=== PATIENT | male | born 1965 ===

== ENCOUNTER 2017-05-09 10:21 | Inpatient (IN) | payer OTHER ==
[2017-05-09 10:23] VITALS: BMI 29.0
[2017-05-09] MEDS ORDERED: Iohexol 240 (50 ml) PO ONE (11:19)
--- NOTE | 2017-05-09 11:21 | ED PDOC ---
HPI: Abdomen Time Seen by Provider: 05/09/17 10:40 Chief Complaint (Nursing): Abdominal Pain Chief Complaint (Provider): Abdominal Pain History Per: Patient History/Exam Limitations: no limitations Onset/Duration Of Symptoms: Days (x 2-3 weeks), Worse Since (last night) Current Symptoms Are (Timing): Still Present Additional History Per: Family () Additional Complaint(s): Jm is a 51 y/o male with a history of diverticulitis who presents to the ED complaining of abdominal pain and distension. Patient's states his abdomen started becoming distended around 2-3 weeks ago, and last night he developed severe abdominal pain, sweating, dysuria, and constipation. Patient denies fever. PMD: None Past Medical History Reviewed: Historical Data, Nursing Documentation, Vital Signs Vital Signs: Last Vital Signs Temp 98.6 F 05/10/17 16:24 Pulse 98 H 05/10/17 16:24 Resp 18 05/10/17 16:24 BP 162/94 H 05/10/17 16:24 Pulse Ox 96 05/10/17 16:24 - Medical History PMH: Diverticulitis Denies: HTN (PT DENIES), Hypercholesterolemia (PT DENIES), Chronic Kidney Disease - Surgical History Other surgeries: shoulder surgery b/l, elbow surgery - Family History Family History: States: Unknown Family Hx - Social History Current smoker - smoking cessation education provided: Yes (few cigarettes/day) Alcohol: < 2 Drinks/Day Drugs: Denies - Immunization History Hx Tetanus Toxoid Vaccination: No Hx Influenza Vaccination: Yes Hx Pneumococcal Vaccination: No - Home Medications Home Medications: Ambulatory Orders Medication Instructions Recorded No Known Home Med 05/09/17 - Allergies Allergies/Adverse Reactions: Allergies Allergy/AdvReac Type Severity Reaction Status Date / Time hazelnut Allergy SWELLING Verified 05/09/17 10:46 Review of Systems ROS Statement: Except As Marked, All Systems Reviewed And Found Negative Constitutional: Positive for: Chills, Sweats. Negative for: Fever Gastrointestinal: Positive for: Abdominal Pain, Constipation, Other (distension) Genitourinary Male: Positive for: Dysuria Physical Exam - Reviewed Nursing Documentation Reviewed: Yes Vital Signs Reviewed: Yes - Physical Exam Appears: Positive for: No Acute Distress Head Exam: Positive for: ATRAUMATIC, NORMOCEPHALIC Skin: Positive for: Normal Color, Warm, Dry Eye Exam: Positive for: Normal appearance Cardiovascular/Chest: Positive for: Regular Rate, Rhythm. Negative for: Murmur Respiratory: Positive for: Normal Breath Sounds. Negative for: Respiratory Distress Gastrointestinal/Abdominal: Positive for: Tenderness (diffuse), Distended Back: Positive for: Normal Inspection Neurologic/Psych: Positive for: Alert, Oriented. Negative for: Motor/Sensory Deficits - Laboratory Results Result Diagrams: 05/10/17 06:00 05/10/17 06:00 - ECG O2 Sat by Pulse Oximetry: 97 (RA) Pulse Ox Interpretation: Normal Medical Decision Making Medical Decision Making: Time: 11:19 Initial Impression: Abdominal Pain; rule out cirrhosis, constipation Initial Plan: --CT Abdomen & Pelvis with PO and IV contrast --CMP --CBC --Omnipaque --Urinalysis Time: 14:57 CT ABDOMEN & PELVIS IMPRESSION: Findings likely represent sigmoid diverticulitis though other infectious or inflammatory causes are not completely excluded. Limited free loculated gas adjacent to the affected sigmoid segment is favored over large diverticulum. No definite abscess. Trace pelvic ascites. Underlying neoplasm is including the differs diagnosis though not favored with lower endoscopy suggested following therapy. Enlarge fatty liver. Mildly enlarged prostate gland. Time: 15:13 --Based on CT results, diagnosis is acute diverticulitis with microperforation. Calling hospitalist engineer design and construction to discuss plan. --Dr. Figueroa, surgeon engineer design and construction aware of pt. discussed also with hospitalist, accepted patient -iv abx ordered and pt admitted -answered pt and questions at bedside Scribe Attestation: Documented by Samy You, acting as a scribe for Gloria Ashraf MD Provider Scribe Attestation: All medical record entries made by the Scribe were at my direction and personally dictated by me. I have reviewed the chart and agree that the record accurately reflects my personal performance of the history, physical exam, medical decision making, and the department course for this patient. I have also personally directed, reviewed, and agree with the discharge instructions and disposition. Disposition - Clinical Impression Clinical Impression: Abdominal discomfort, Acute diverticulitis - Patient ED Disposition Is Patient to be Admitted: Yes Discussed With : Pamela Figueroa Doctor Will See Patient In The: ED Counseled Patient/Family Regarding: Studies Performed, Diagnosis - Disposition Disposition Time: 13:00 Condition: STABLE
[2017-05-09] MEDS ORDERED: Iohexol 240 (50 ml) ONE (11:37)
[2017-05-09] MEDS ORDERED: Morphine 4 MG/ML VIAL ONE (11:41)
[2017-05-09] MEDS ORDERED: Morphine 4 MG/ML VIAL IV ONE (11:45)
[2017-05-09 12:26] LABS: BASO # 0.1 K/uL (0.0-0.2); BASO % 0.6 % (0.0-2.0); EOS # 0.2 K/uL (0.0-0.7); EOS % 1.2 % (0.0-4.0); HEMOGLOBIN 13.2 g/dL (12.0-18.0); LYMPH # 1.4 K/uL (1.0-4.3); LYMPH % 9.5 % (20.0-40.0); MEAN CELL VOLUME 92.1 fl (80.0-94.0); MEAN CORPUSCULAR HEMOGLOBIN 31.1 pg (27.0-31.0); MEAN CORPUSCULAR HGB CONC 33.8 g/dL (33.0-37.0); MEAN PLATELET VOLUME 7.5 fl (7.2-11.7); MONO # 1.5 K/uL (0.0-0.8); MONO % 10.3 % (0.0-10.0); NEUT # 11.4 K/uL (1.8-7.0); NEUT % 78.4 % (50.0-75.0); PLATELET COUNT 238 K/uL (130-400); RBC 4.23 Mil/uL (4.40-5.90); RED CELL DISTRIBUTION WIDTH 13.4 % (11.5-14.5); WHITE BLOOD COUNT 14.6 K/uL (4.8-10.8)
[2017-05-09 12:34] LABS: ALB/GLOB RATIO 1.3 (1.0-2.1); ALBUMIN 4.2 g/dL (3.5-5.0); ALT/SGPT 27 U/L (21-72); AST/SGOT 26 U/L (17-59); BLOOD UREA NITROGEN 10 mg/dl (9-20); CALCIUM 9.3 mg/dL (8.4-10.2); GFR AFRICAN-AMERICAN > 60; GFR NON-AFRICAN AMERICAN > 60
[2017-05-09 13:17] LABS: SQUAMOUS EPITHIAL < 1 /hpf (0-5); URINE BACTERIA RARE (<OCC); URINE BILIRUBIN NEGATIVE (NEGATIVE); URINE BLOOD NEGATIVE (NEGATIVE); URINE CLARITY CLEAR (Clear); URINE COLOR YELLOW (YELLOW); URINE GLUCOSE (UA) NEG (Normal); URINE LEUKOCYTE ESTERASE NEG Leu/uL (Negative); URINE NITRATE NEGATIVE (NEGATIVE); URINE PROTEIN NEGATIVE (NEGATIVE); URINE UROBILINOGEN 0.2-1.0 mg/dL (0.2-1.0)
[2017-05-09 14:20] LABS: BASOPHIL 1 % (0-2); LYMPHOCYTE 8 % (20-50); MONOCYTE 13 % (0-10); NEUTROPHIL 78 % (42-75); PLATELET ESTIMATE NORMAL (NORMAL); TOTAL CELLS COUNTED 100
[2017-05-09] MEDS ORDERED: Iohexol 300 100 ML IJ ONE (14:25)
[2017-05-09] MEDS ORDERED: Sodium Chloride 0.9% 100 ML ONE (14:25)
--- NOTE | 2017-05-09 14:59 | CT ---
PROCEDURE: CT Abdomen and Pelvis with contrast HISTORY: abdominal pain and distention COMPARISON: None. TECHNIQUE: Contrast dose: Omnipaque 300, 100 cc Radiation dose: Total exam DLP = 892.13 mGy-cm. This CT exam was performed using one or more of the following dose reduction techniques: Automated exposure control, adjustment of the mA and/or kV according to patient size, and/or use of iterative reconstruction technique. FINDINGS: LOWER THORAX: Unremarkable. LIVER: The liver is diffusely diminished in overall density compatible with diffuse fatty infiltration. Further, [id number] hepatomegaly is appreciated. No definite intrahepatic biliary dilatation or mass identified. GALLBLADDER AND BILE DUCTS: Mildly distended but otherwise appears unremarkable. PANCREAS: Unremarkable. No gross lesion or ductal dilatation. SPLEEN: Unremarkable. ADRENALS: Right or gland is normal appearing. The left adrenal gland harbors a AD nodule measuring 2.0 x 2.6 cm. It measures 39 Hounsfield units in this enhanced study. Though this may represent a benign adenoma, this cannot be proven by this examination, with other etiologies including neoplasm not excluded. Follow-up adrenal MRI is advised without contrast. KIDNEYS AND URETERS: Unremarkable. No hydronephrosis. No solid mass. VASCULATURE: Unremarkable. No aortic aneurysm. BOWEL: The stomach is collapsed and is poorly evaluated. However, evaluation the bowel is remarkable for prominent mural thickening of the mid to distal sigmoid colon with associated diverticular changes compatible with diverticulitis. Minimal pelvic ascites is related and there is likely loculated extraluminal gas seen associated with the mid sigmoid segment anteriorly though this could represent a large diverticulum. No definitive abscess at this time. Sympathetic segmental enteritis is seen at and adjacent mid ileal loop. . APPENDIX: Normal appendix, retrocecal. PERITONEUM: As above in bowel section. LYMPH NODES: Unremarkable. No enlarged lymph nodes. BLADDER: Unremarkable. REPRODUCTIVE: Mild prostate gland enlargement noted. BONES: No acute fracture. OTHER FINDINGS: None. IMPRESSION: Findings likely represent sigmoid diverticulitis though other infectious or inflammatory causes are not completely excluded. Limited free loculated gas adjacent to the affected sigmoid segment is favored over large diverticulum. No definite abscess. Trace pelvic ascites. Underlying neoplasm is including the differs diagnosis though not favored with lower endoscopy suggested following therapy. Enlarged fatty liver. Mildly enlarged prostate gland. Findings discussed with Dr. leiva 05/09/2017 2:57 p.m. with written down and read back verification.
[2017-05-09] MEDS ORDERED: Piperacillin/Tazobact 4.5 GM in Sodium Chloride 0.9% 100 ML IVPB STA (15:12)
[2017-05-09] MEDS ORDERED: metroNIDAZOLE 500mg/100ml NS 100 ML IVPB SCH (15:30)
[2017-05-09] MEDS ORDERED: Piperacillin/Tazobact 3.375 gm Inj IVPB ONE (15:43)
[2017-05-09] MEDS ORDERED: metroNIDAZOLE 500mg/100ml NS 100 ML IVPB ONE (15:56)
--- NOTE | 2017-05-09 16:24 | CP.PCM.CON ---
History of Present Illness - History of Present Illness History of Present Illness: General Surgery Dr. Figueroa 51 y/o M y/o PMHx of EtOH dependence, constipation, and diverticulitis presents to the ED c/o abd pain. Family member at bedside to help corroborate pt history. Pain started a few days ago, however, became acutely intense yesterday , causing the pt to double over. Movement and coughing make the pain worse. Nothing makes the pain better. Pain is localized to the suprapubic/LLQ region. Pt reports concurrent dysuria and hesitancy. Pt also admits to new CP, SOB w/ chronic productive cough, and RUQ abd pain. Pt denies F/C, N/V. PHMx: see above Meds: reviewed in chart ALL: hazelnut, fish; NKDA PSHx: B/L shoulder repair, L elbow, cardiac cath SHx: 1 pack x2days. 2-3beers daily. occasional marijuana use FHx: noncontributory Review of Systems - Review of Systems All systems: reviewed and no additional remarkable complaints except (see HPI) Past Patient History - Infectious Disease Hx of Infectious Diseases: None - Past Medical History & Family History Past Medical History?: Yes - Past Social History Alcohol: < 2 Drinks/Day Drugs: Denies - CARDIAC Hx Hypercholesterolemia: No (PT DENIES) Hx Hypertension: No (PT DENIES) - PULMONARY Hx Respiratory Disorders: No - NEUROLOGICAL Hx Neurological Disorder: No - HEENT Hx HEENT Problems: No - RENAL Hx Chronic Kidney Disease: No - ENDOCRINE/METABOLIC Hx Endocrine Disorders: No - HEMATOLOGICAL/ONCOLOGICAL Hx Blood Disorders: No - INTEGUMENTARY Hx Dermatological Problems: No - MUSCULOSKELETAL/RHEUMATOLOGICAL Hx Falls: No - GASTROINTESTINAL Hx Diverticulitis: Yes - GENITOURINARY/GYNECOLOGICAL Hx Genitourinary Disorders: No - PSYCHIATRIC Hx Substance Use: No - SURGICAL HISTORY Hx Surgeries: Yes (cuff rotator sx) Hx Orthopedic Surgery: Yes (shai shoulder, LEFT ELBOW SURGERY) - ANESTHESIA Hx Anesthesia: Yes Hx Anesthesia Reactions: No Hx Malignant Hyperthermia: No Meds Allergies/Adverse Reactions: Allergies Allergy/AdvReac Type Severity Reaction Status Date / Time elenonut Allergy SWELLING Verified 05/09/17 10:46 - Medications Medications: Current Medications Piperacillin Sod/Tazobactam (Sod 4.5 gm/ Sodium Chloride) 100 mls @ 100 mls/hr IVPB STAT STA PRN Reason: Protocol Stop: 05/09/17 16:11 Metronidazole (Flagyl 500mg/100ml Ns) 100 mls @ 100 mls/hr IVPB ONCE BERNY PRN Reason: Protocol Last Admin: 05/09/17 15:57 Dose: 100 mls/hr Physical Exam - Constitutional Appears: Non-toxic, No Acute Distress - Head Exam Head Exam: NORMAL INSPECTION - Eye Exam Eye Exam: Normal appearance - ENT Exam ENT Exam: Mucous Membranes Moist - Respiratory Exam Respiratory Exam: NORMAL BREATHING PATTERN. absent: Accessory Muscle Use, Respiratory Distress - GI/Abdominal Exam GI & Abdominal Exam: Distended (moderate), Soft, Tenderness (TTP suprapubic & RUQ). absent: Rebound, Rigid - Extremities Exam Extremities exam: Positive for: normal inspection - Neurological Exam Neurological exam: Alert, Oriented x3 - Psychiatric Exam Psychiatric exam: Normal Affect, Normal Mood - Skin Skin Exam: Dry, Intact, Normal Color, Warm Results - Vital Signs Recent Vital Signs: Last Vital Signs Temp 98.3 F 05/09/17 10:24 Pulse 103 H 05/09/17 10:24 Resp 20 05/09/17 10:24 BP 156/98 H 05/09/17 10:24 Pulse Ox 97 05/09/17 15:21 - Labs Result Diagrams: 05/09/17 12:00 05/09/17 12:00 Labs: Laboratory Results - last 24 hr 05/09/17 05/09/17 05/09/17 12:00 12:00 13:00 WBC 14.6 H RBC 4.23 L Hgb 13.2 Hct 39.0 MCV 92.1 MCH 31.1 H MCHC 33.8 RDW 13.4 Plt Count 238 MPV 7.5 Neut % (Auto) 78.4 H Lymph % (Auto) 9.5 L [place] % (Auto) 10.3 H Eos % (Auto) 1.2 Baso % (Auto) 0.6 Neut # (Auto) 11.4 H Lymph # (Auto) 1.4 [place] # (Auto) 1.5 H Eos # (Auto) 0.2 Baso # (Auto) 0.1 Neutrophils % (Manual) 78 H Lymphocytes % (Manual) 8 L Monocytes % (Manual) 13 H Basophils % (Manual) 1 Platelet Estimate Normal RBC Morphology Normal Sodium 139 Potassium 3.6 Chloride 100 Carbon Dioxide 25 Anion Gap 18 BUN 10 Creatinine 0.7 L Est GFR ( Amer) > 60 Est GFR (Non-Af Amer) > 60 Random Glucose 117 H Calcium 9.3 Total Bilirubin 0.9 AST 26 ALT 27 Alkaline Phosphatase 53 Total Protein 7.4 Albumin 4.2 Globulin 3.2 Albumin/Globulin Ratio 1.3 Urine Color Yellow Urine Clarity Clear Urine pH 6.0 Ur Specific [place] 1.010 Urine Protein Negative Urine Glucose (UA) Neg Urine Ketones Negative Urine Blood Negative Urine Nitrate Negative Urine Bilirubin Negative Urine Urobilinogen 0.2-1.0 Ur Leukocyte Esterase Neg Urine RBC (Auto) 3 Urine Microscopic WBC 1 Ur Squamous Epith Cells < 1 Urine Bacteria Rare - Imaging and Cardiology CT scan - abdomen Status: Image reviewed by me, Report reviewed by me Assessment & Plan - Assessment and Plan (Free Text) Assessment: 51 y/o M w/ abd pain 2/2 diverticulitis w/ micro-perforation - NPO, IVF - IV Abx - pain management - anti-emetic - recommend Cardiac consult for CP - possible colon resection later this admission; will likely need cardiac clearance Pt discussed w/ Dr. Henry Hunt DO PGY2
[2017-05-09] MEDS: Sodium Chloride 0.9% 1,000 ML IV SCH (17:29)
[2017-05-09] MEDS: metroNIDAZOLE 500mg/100ml NS 100 ML IVPB SCH (20:13)
--- NOTE | 2017-05-09 22:57 | CP.PCM.HP ---
History of Present Illness - History of Present Illness History of Present Illness: 51 YO M w/ PMH of diverticulitis and constipation had presented to the ED with abdominal pain which started yesterday 10/26 and has progressively getting worse. Pain is localized in the suprapubic and left lower quadrant region and does not radiate anywhere. Pain is aggravated with movement. Patient has had some nausea but no episodes of vomiting or diarrhea. He had a similar episode a year ago for which he was hospitalized. - Patient complains of some dysuria however no blood noted in urine. According to past admissions patient also has dysuria but was not diagnosed with a UTI. Patient states he had some chest pain yesterday on the left side but did not radiate anywhere. Has some SOB on exertion while he at work, denies any difficultly breathing when he is laying down flat. Denies any palpation or dizziness. - Today patient denies any chest pain, SOB, palpitation , dizziness PMH: Diverticulitis 2017, constipation PSH: B/L shoulder repair, Cath was normal ( [place]) Allergy : Hazelnuts Social History: Patient states he smoke 1/2 pack a day for 20 years. Patient states he drinks 2 beers, 3-4 times per week. Patient states he smokes marijuana once a week. Patient denied any other illicit drug use. PMD: No PMD Present on Admission - Present on Admission Any Indicators Present on Admission: No Past Patient History - Infectious Disease Hx of Infectious Diseases: None - Past Medical History & Family History Past Medical History?: Yes - Past Social History Alcohol: < 2 Drinks/Day Drugs: Denies - CARDIAC Hx Hypercholesterolemia: No (PT DENIES) Hx Hypertension: No (PT DENIES) - PULMONARY Hx Respiratory Disorders: No - NEUROLOGICAL Hx Neurological Disorder: No - HEENT Hx HEENT Problems: No - RENAL Hx Chronic Kidney Disease: No - ENDOCRINE/METABOLIC Hx Endocrine Disorders: No - HEMATOLOGICAL/ONCOLOGICAL Hx Blood Disorders: No - INTEGUMENTARY Hx Dermatological Problems: No - MUSCULOSKELETAL/RHEUMATOLOGICAL Hx Falls: No - GASTROINTESTINAL Hx Diverticulitis: Yes - GENITOURINARY/GYNECOLOGICAL Hx Genitourinary Disorders: No - PSYCHIATRIC Hx Substance Use: No - SURGICAL HISTORY Hx Surgeries: Yes (cuff rotator sx) Hx Orthopedic Surgery: Yes (shai shoulder, LEFT ELBOW SURGERY) - ANESTHESIA Hx Anesthesia: Yes Hx Anesthesia Reactions: No Hx Malignant Hyperthermia: No Meds Allergies/Adverse Reactions: Allergies Allergy/AdvReac Type Severity Reaction Status Date / Time hazelnut Allergy SWELLING Verified 05/09/17 10:46 Physical Exam - Constitutional Appears: No Acute Distress - Head Exam Head Exam: NORMAL INSPECTION - Eye Exam Eye Exam: Normal appearance - Respiratory Exam Respiratory Exam: Clear to Auscultation Bilateral, NORMAL BREATHING PATTERN. absent: Rhonchi, Wheezes - Cardiovascular Exam Cardiovascular Exam: REGULAR RHYTHM, +S1, +S2 - GI/Abdominal Exam GI & Abdominal Exam: Soft, Tenderness (over superpubic region and RUQ) - Extremities Exam Extremities exam: Positive for: normal inspection. Negative for: calf tenderness, pedal edema - Neurological Exam Neurological exam: Alert, CN II-XII Intact, Oriented x3 - Skin Skin Exam: Normal Color, Warm Results - Vital Signs Recent Vital Signs: Last Vital Signs Temp 99 F 05/09/17 22:32 Pulse 97 H 05/09/17 22:32 Resp 18 05/09/17 22:32 BP 143/80 05/09/17 22:32 Pulse Ox 95 05/09/17 22:32 - Labs Result Diagrams: 05/09/17 12:00 05/09/17 12:00 Labs: Laboratory Results - last 24 hr 05/09/17 05/09/17 05/09/17 12:00 12:00 13:00 WBC 14.6 H RBC 4.23 L Hgb 13.2 Hct 39.0 MCV 92.1 MCH 31.1 H MCHC 33.8 RDW 13.4 Plt Count 238 MPV 7.5 Neut % (Auto) 78.4 H Lymph % (Auto) 9.5 L [place] % (Auto) 10.3 H Eos % (Auto) 1.2 Baso % (Auto) 0.6 Neut # (Auto) 11.4 H Lymph # (Auto) 1.4 [place] # (Auto) 1.5 H Eos # (Auto) 0.2 Baso # (Auto) 0.1 Neutrophils % (Manual) 78 H Lymphocytes % (Manual) 8 L Monocytes % (Manual) 13 H Basophils % (Manual) 1 Platelet Estimate Normal RBC Morphology Normal Sodium 139 Potassium 3.6 Chloride 100 Carbon Dioxide 25 Anion Gap 18 BUN 10 Creatinine 0.7 L Est GFR ( Amer) > 60 Est GFR (Non-Af Amer) > 60 Random Glucose 117 H Calcium 9.3 Total Bilirubin 0.9 AST 26 ALT 27 Alkaline Phosphatase 53 Total Protein 7.4 Albumin 4.2 Globulin 3.2 Albumin/Globulin Ratio 1.3 Urine Color Yellow Urine Clarity Clear Urine pH 6.0 Ur Specific [place] 1.010 Urine Protein Negative Urine Glucose (UA) Neg Urine Ketones Negative Urine Blood Negative Urine Nitrate Negative Urine Bilirubin Negative Urine Urobilinogen 0.2-1.0 Ur Leukocyte Esterase Neg Urine RBC (Auto) 3 Urine Microscopic WBC 1 Ur Squamous Epith Cells < 1 Urine Bacteria Rare Assessment & Plan - Assessment and Plan (Free Text) Assessment: 51 YO M admitted for progressively worsening abdominal pain w/ micro perforation 1) Abdominal pain - Sepsis secondary to diverticulitis - NPO - WBC: 14.6 - Most likely secondary to diverticulitis with microperforation - Surgery consult appreciated - C/W w/ IV antibiotics - Possible colon resection latter on admission, will f/u with surgery - CT consistent with acute diverticulitis with microperforation 2.) Leukocytosis possibly due to acute diverticulitis vs colitis - f/u blood culture - Monitor CBC - C/W IV antibiotics 3) SOB and history of chest pain - f/U with EKG, - BNP - F/U with chest x ray 4) Tobacco use disorder - Nicotine Patch for hospital course - Discussed smoking cessation 5) DVT prophylaxis - Lovenox 40 SC
[2017-05-09] MEDS: Piperacillin/Tazobact 3.375 GM in Sodium Chloride 0.9% 100 ML IVPB SCH (23:15)
[2017-05-10] MEDS: Sodium Chloride 0.9% 1,000 ML IV SCH ×4 (01:24→17:50)
[2017-05-10] MEDS: metroNIDAZOLE 500mg/100ml NS 100 ML IVPB SCH ×3 (01:25→17:29)
[2017-05-10] MEDS ORDERED: Pneumococcal 23-Valent Vaccine IM ONE (03:54)
[2017-05-10] MEDS: Piperacillin/Tazobact 3.375 GM in Sodium Chloride 0.9% 100 ML IVPB SCH ×4 (04:06→21:37)
[2017-05-10] MEDS ORDERED: Influenza Vaccine 18yr & older 0.5 ML/45 MCG SYR IM ONE (06:00)
[2017-05-10 07:24] LABS: HEMOGLOBIN 12.7 g/dL (12.0-18.0); MEAN CELL VOLUME 92.2 fl (80.0-94.0); MEAN CORPUSCULAR HEMOGLOBIN 31.2 pg (27.0-31.0); MEAN CORPUSCULAR HGB CONC 33.8 g/dL (33.0-37.0); RBC 4.07 Mil/uL (4.40-5.90); RED CELL DISTRIBUTION WIDTH 13.3 % (11.5-14.5); WHITE BLOOD COUNT 12.1 K/uL (4.8-10.8)
[2017-05-10 07:45] LABS: B-TYPE NATRIURETIC PEPTIDE 48.9 pg/ml (0-900)
[2017-05-10 07:47] LABS: ALB/GLOB RATIO 1.2 (1.0-2.1); ALBUMIN 3.8 g/dL (3.5-5.0); ALT/SGPT 35 U/L (21-72); AST/SGOT 19 U/L (17-59); BLOOD UREA NITROGEN 6 mg/dl (9-20); CALCIUM 8.7 mg/dL (8.4-10.2); GFR AFRICAN-AMERICAN > 60; GFR NON-AFRICAN AMERICAN > 60; HDL CHOLESTEROL 48 MG/DL (30-70); LDL CHOLESTEROL 65 mg/dL (0-129)
--- NOTE | 2017-05-10 08:46 | CP.PCM.PN ---
Subjective - Date & Time of Evaluation Date of Evaluation: 05/10/17 Time of Evaluation: 07:40 - Subjective Subjective: General Surgery Dr. Figueroa Pt S&E @bedside. NAEO. Pt reports mildly improved abd pain. Pt denies F/C, N/V, D/C. Pt is NPO. Objective - Vital Signs/Intake and Output Vital Signs (last 24 hours): Temp Pulse Resp BP Pulse Ox 98.6 F 83 20 141/79 95 05/10/17 08:24 05/10/17 08:24 05/10/17 08:24 05/10/17 08:24 05/10/17 08:24 - Medications Medications: Current Medications Enoxaparin Sodium (Lovenox) 40 mg SC DAILY BERNY PRN Reason: Protocol Hydromorphone HCl (Dilaudid) 1 mg IVP Q3 PRN PRN Reason: Pain, severe (8-10) Last Admin: 05/10/17 06:17 Dose: 1 mg Hydromorphone HCl (Dilaudid) 0.5 mg IVP Q3 PRN PRN Reason: Pain, moderate (4-7) Metronidazole (Flagyl 500mg/100ml Ns) 100 mls @ 100 mls/hr IVPB Q8 BERNY PRN Reason: Protocol Last Admin: 05/10/17 01:25 Dose: 100 mls/hr Piperacillin Sod/Tazobactam (Sod 3.375 gm/ Sodium Chloride) 100 mls @ 100 mls/ hr IVPB Q6 BERNY PRN Reason: Protocol Last Admin: 05/10/17 04:06 Dose: 100 mls/hr Sodium Chloride (Sodium Chloride 0.9%) 1,000 mls @ 150 mls/hr IV .Q6H40M [facility] Last Admin: 05/10/17 08:16 Dose: Not Given Nicotine (Nicoderm Cq) 1 patch TD DAILY [facility] Ondansetron HCl (Zofran Inj) 4 mg IVP Q4 PRN PRN Reason: Nausea/Vomiting Pantoprazole Sodium (Protonix Inj) 40 mg IVP DAILY [facility] - Labs Labs: 05/10/17 06:00 05/10/17 06:00 - Constitutional Appears: Non-toxic, No Acute Distress - Head Exam Head Exam: NORMAL INSPECTION - Eye Exam Eye Exam: Normal appearance - ENT Exam ENT Exam: Mucous Membranes Moist - Respiratory Exam Respiratory Exam: NORMAL BREATHING PATTERN. absent: Accessory Muscle Use, Respiratory Distress - GI/Abdominal Exam GI & Abdominal Exam: Distended (minimal), Soft. absent: Guarding, Tenderness - Extremities Exam Extremities Exam: Normal Inspection - Neurological Exam Neurological Exam: Alert, Awake, Oriented x3 - Psychiatric Exam Psychiatric exam: Normal Affect, Normal Mood - Skin Skin Exam: Dry, Intact, Normal Color, Warm Assessment and Plan - Assessment and Plan (Free Text) Assessment: 51 y/o M w/ sigmoid diverticulitis w/ micro-perf - cont NPO - IV Abx, IVF - cont pain management - encourage OOB to chair/Amb - discussed possibility of colon resection this admission. Pt to talk it over w / before making decision Pt discussed w/ Dr. Henry Hunt DO PGY2
[2017-05-10] MEDS: Enoxaparin 40 mg Syringe SC SCH (09:43)
--- NOTE | 2017-05-10 09:48 | RAD ---
HISTORY: fever/cough COMPARISON: No prior. TECHNIQUE: Chest PA and lateral FINDINGS: LUNGS: No active pulmonary disease. PLEURA: No significant pleural effusion identified. No pneumothorax apparent. CARDIOVASCULAR: Normal. OSSEOUS STRUCTURES: No significant abnormalities. VISUALIZED UPPER ABDOMEN: Retained enteric contrast from recent CT scan of the abdomen and pelvis. OTHER FINDINGS: None. IMPRESSION: No active disease.
[2017-05-10 10:58] LABS: BARBITURATES, UR NEGATIVE (NEGATIVE); BENZODIAZEPINES, UR NEGATIVE (NEGATIVE); OPIATES, UR POSITIVE (NEGATIVE); PHENCYCLIDINE, UR NEGATIVE (NEGATIVE)
--- NOTE | 2017-05-10 12:16 | CP.PCM.PN ---
Subjective - Date & Time of Evaluation Date of Evaluation: 05/10/17 Time of Evaluation: 07:10 - Subjective Subjective: Patient seen and examined this morning, NAD. Patient is c/o pain but controlled on pain meds. Patient denies any nausea, vomiting, chest pain, SOB, but admits dysuria but denies any bleeding. Objective - Vital Signs/Intake and Output Vital Signs (last 24 hours): Temp Pulse Resp BP Pulse Ox 98.6 F 83 20 141/79 95 05/10/17 08:24 05/10/17 08:24 05/10/17 08:24 05/10/17 08:24 05/10/17 08:24 - Medications Medications: Current Medications Enoxaparin Sodium (Lovenox) 40 mg SC DAILY BERNY PRN Reason: Protocol Last Admin: 05/10/17 09:43 Dose: 40 mg Hydromorphone HCl (Dilaudid) 1 mg IVP Q3 PRN PRN Reason: Pain, severe (8-10) Last Admin: 05/10/17 09:41 Dose: 1 mg Hydromorphone HCl (Dilaudid) 0.5 mg IVP Q3 PRN PRN Reason: Pain, moderate (4-7) Metronidazole (Flagyl 500mg/100ml Ns) 100 mls @ 100 mls/hr IVPB Q8 BERNY PRN Reason: Protocol Last Admin: 05/10/17 11:20 Dose: 100 mls/hr Piperacillin Sod/Tazobactam (Sod 3.375 gm/ Sodium Chloride) 100 mls @ 100 mls/ hr IVPB Q6 BERNY PRN Reason: Protocol Last Admin: 05/10/17 09:45 Dose: 100 mls/hr Sodium Chloride (Sodium Chloride 0.9%) 1,000 mls @ 150 mls/hr IV .Q6H40M [facility] Last Admin: 05/10/17 08:16 Dose: Not Given Nicotine (Nicoderm Cq) 1 patch TD DAILY [facility] Last Admin: 05/10/17 09:46 Dose: 1 patch Ondansetron HCl (Zofran Inj) 4 mg IVP Q4 PRN PRN Reason: Nausea/Vomiting Pantoprazole Sodium (Protonix Inj) 40 mg IVP DAILY [facility] Last Admin: 05/10/17 09:45 Dose: 40 mg - Labs Labs: 05/10/17 06:00 05/10/17 06:00 - Constitutional Appears: No Acute Distress - Head Exam Head Exam: ATRAUMATIC - Eye Exam Eye Exam: Normal appearance Pupil Exam: NORMAL ACCOMODATION - ENT Exam ENT Exam: Mucous Membranes Moist - Neck Exam Neck Exam: Normal Inspection - Respiratory Exam Respiratory Exam: Clear to Ausculation Bilateral - Cardiovascular Exam Cardiovascular Exam: REGULAR RHYTHM - GI/Abdominal Exam GI & Abdominal Exam: Guarding, Soft, Tenderness, Normal Bowel Sounds. absent: Distended Additional comments: b/l lower abdomen, Guarding - Extremities Exam Extremities Exam: Normal Capillary Refill, Normal Inspection - Back Exam Back Exam: NORMAL INSPECTION - Neurological Exam Neurological Exam: Alert, Awake, CN II-XII Intact, Oriented x3 - Psychiatric Exam Psychiatric exam: Normal Affect - Skin Skin Exam: Dry, Intact, Normal Color Assessment and Plan - Assessment and Plan (Free Text) Assessment: A/P: 51 YO M admitted for progressively worsening abdominal pain, diagnosed with diverticulitis with micro perforation Acute Abdominal pain: Diverticulitis with Microperforation - Afebrile - WBC: 12.1 - CT consistent with acute diverticulitis with microperforation - Surgery consult appreciated - NPO, IVF - Continue w/ IV antibiotics, Zosyn 3.375gm IVPB Q6H (Day#1) and Flagyl (Day 1) - Continue pain management, Hydromorphone - No surgical intervention at this time - Possible colon resection latter on admission, since patient have had 3 diverticulitis episodes in last 6 months Leukocytosis due to acute diverticulitis - Afebrile - WBC 15-->12 - f/u blood culture 05/09/17 - C/W IV antibiotics day 1 History of chest pain - Improved, Noncardiac chest pain - BNP 48.9 - Troponin x 1 negative - chest x ray: no acute findings - Cardiac Cath in 2013: non obstructive CAD - Cardiology, Dr. Yeboah consulted, follow up pio' Tobacco use disorder - Nicotine Patch for hospital course - Discussed smoking cessation DVT prophylaxis - Lovenox 40 SC
[2017-05-10] MEDS ORDERED: Oxycodone/Acetaminophen 5/325 mg Tab PO PRN (17:35)
[2017-05-11] MEDS: metroNIDAZOLE 500mg/100ml NS 100 ML IVPB SCH ×3 (01:01→16:50)
[2017-05-11] MEDS: Piperacillin/Tazobact 3.375 GM in Sodium Chloride 0.9% 100 ML IVPB SCH ×5 (03:51→22:02)
[2017-05-11] MEDS: Sodium Chloride 0.9% 1,000 ML IV SCH ×4 (04:00→20:47)
[2017-05-11 06:33] LABS: HEMOGLOBIN 12.9 g/dL (12.0-18.0); MEAN CELL VOLUME 91.7 fl (80.0-94.0); MEAN CORPUSCULAR HEMOGLOBIN 31.1 pg (27.0-31.0); MEAN CORPUSCULAR HGB CONC 33.9 g/dL (33.0-37.0); RBC 4.14 Mil/uL (4.40-5.90); RED CELL DISTRIBUTION WIDTH 13.3 % (11.5-14.5); WHITE BLOOD COUNT 20.6 K/uL (4.8-10.8)
[2017-05-11 06:46] LABS: BLOOD UREA NITROGEN 5 mg/dl (9-20); GFR AFRICAN-AMERICAN > 60; GFR NON-AFRICAN AMERICAN > 60
[2017-05-11] MEDS ORDERED: Iohexol 240 (50 ml) PO ONE (08:13)
--- NOTE | 2017-05-11 08:17 | CP.PCM.PN ---
Subjective - Date & Time of Evaluation Date of Evaluation: 05/11/17 Time of Evaluation: 08:15 - Subjective Subjective: General Surgery: Dr Figueroa (Dr Go covering) Pt S&E. Reports single episode of emesis after trial of CLD last night. Was associated with increased pain in LLQ. Pt also had fever of 100.7. Currently, pain has improved since last night, but he is press and blow machine tender and nauseous. Also complains of chills. Objective - Vital Signs/Intake and Output Vital Signs (last 24 hours): Temp Pulse Resp BP Pulse Ox 98.9 F 88 20 132/73 100 05/11/17 00:05 05/11/17 00:05 05/11/17 00:05 05/11/17 00:05 05/11/17 00:05 - Medications Medications: Current Medications Acetaminophen (Tylenol 325mg Tab) 650 mg PO Q4 PRN PRN Reason: Fever >100.4 F Enoxaparin Sodium (Lovenox) 40 mg SC DAILY BERNY PRN Reason: Protocol Last Admin: 05/10/17 09:43 Dose: 40 mg Hydromorphone HCl (Dilaudid) 1 mg IVP Q3 PRN PRN Reason: Pain, severe (8-10) Last Admin: 05/11/17 03:47 Dose: 1 mg Metronidazole (Flagyl 500mg/100ml Ns) 100 mls @ 100 mls/hr IVPB Q8 BERNY PRN Reason: Protocol Last Admin: 05/11/17 01:01 Dose: 100 mls/hr Piperacillin Sod/Tazobactam (Sod 3.375 gm/ Sodium Chloride) 100 mls @ 100 mls/ hr IVPB Q6 BERNY PRN Reason: Protocol Last Admin: 05/11/17 03:51 Dose: 100 mls/hr Sodium Chloride (Sodium Chloride 0.9%) 1,000 mls @ 150 mls/hr IV .Q6H40M [facility] Last Admin: 05/11/17 07:52 Dose: 150 mls/hr Iohexol (Omnipaque 240 (50 Ml)) 50 ml PO ONCE ONE Stop: 05/11/17 08:14 Nicotine (Nicoderm Cq) 1 patch TD DAILY [facility] Last Admin: 05/10/17 09:46 Dose: 1 patch Ondansetron HCl (Zofran Inj) 4 mg IVP Q4 PRN PRN Reason: Nausea/Vomiting Last Admin: 05/11/17 06:26 Dose: 4 mg Oxycodone/Acetaminophen (Percocet 5/325 Mg Tab) 1 tab PO Q4 PRN PRN Reason: Pain, moderate (4-7) Stop: 05/13/17 17:36 Last Admin: 05/11/17 01:17 Dose: 1 tab Pantoprazole Sodium (Protonix Inj) 40 mg IVP DAILY [facility] Last Admin: 05/10/17 09:45 Dose: 40 mg - Labs Labs: 05/11/17 05:00 05/11/17 05:00 - Constitutional Appears: Non-toxic, No Acute Distress - Head Exam Head Exam: NORMAL INSPECTION - ENT Exam ENT Exam: Mucous Membranes Dry - Respiratory Exam Respiratory Exam: absent: Accessory Muscle Use, Respiratory Distress - Cardiovascular Exam Cardiovascular Exam: REGULAR RHYTHM. absent: Tachycardia - GI/Abdominal Exam GI & Abdominal Exam: Soft, Tenderness (LLQ unchanged from previous examination) . absent: Distended, Firm, Guarding, Hernia, Mass, Rebound - Neurological Exam Neurological Exam: Alert, Awake, Oriented x3 - Psychiatric Exam Psychiatric exam: Normal Affect, Normal Mood - Skin Skin Exam: Normal Color, Warm Assessment and Plan - Assessment and Plan (Free Text) Assessment: 51M with perforated diverticulitis Plan: pt did not tolerate CLD - will make NPO again given emesis, lack of diet tolerance, inc wbc and fever will obtain repeat CT scan w/ PO and IV contrast to assess for abscess development pt may benefit from upscaling of abx, can consider ID consult to add Merrem d/w Dr Figueroa and Dr Donavan Knox, PGY3
[2017-05-11] MEDS: Enoxaparin 40 mg Syringe SC SCH ×2 (08:18→13:03)
--- NOTE | 2017-05-11 08:52 | CP.PCM.CON ---
History of Present Illness - History of Present Illness History of Present Illness: This 51-year- old man came to the emergency room with severe abdominal pain and nausea and vomiting and has been found to have diverticulitis. This evaluation was requested prior to surgical intervention. The patient is a heavy smoker for number of years and admits to a productive cough off and on. He denies any history of hypertension or diabetes area has never suffered a myocardial infarction or congestive cardiac failure. 3 years back he underwent a coronary angiogram for uncertain reasons and was told that no significant coronary obstruction was seen and the patient was not subjected to any PCI. The patient is fairly active and can walk approximately 8-10 blocks without any difficulty. Physical examination shows a young man who is able to lie virtually flat and breathe comfortably at 16 breaths per minute and carry on a conversation. He complains of a mild chill and significant abdominal discomfort and bouts of vomiting during the night. He is alert awake and coherent. He has a heart rate of 100 bpm regular and a blood pressure of 126/82 mmHg. His jugular venous pressure was not elevated and there was no edema hour his lower extremity. Pedal pulses were well felt. The extremities are warm and no nail beds are pink there was no central or peripheral cyanosis. There was no clubbing. There was no carotid bruit. The apex was not palpable. The first and second heart sounds are normal. There was no murmur or gallop. There were no rales. Scattered rhonchi were audible. Abdomen was slightly distended. Intestinal sounds were well heard. There was diffuse tenderness. His electric cart a gram showed sinus tachycardia with nonspecific ST changes. There were no Q waves on the electrocardiogram. His labs were noted. He had significant leukocytosis. His BUN/creatinine were normal. Impression: Acute diverticulitis. Probable COPD due to chronic cigarette use with a history suggestive of chronic bronchitis. The patient is stable from cardiovascular point of view to proceed with the planned procedure. Past Patient History - Infectious Disease Hx of Infectious Diseases: None - Past Medical History & Family History Past Medical History?: Yes - Past Social History Alcohol: < 2 Drinks/Day Drugs: Denies - CARDIAC Hx Hypercholesterolemia: No (PT DENIES) Hx Hypertension: No (PT DENIES) - PULMONARY Hx Respiratory Disorders: No - NEUROLOGICAL Hx Neurological Disorder: No - HEENT Hx HEENT Problems: No - RENAL Hx Chronic Kidney Disease: No - ENDOCRINE/METABOLIC Hx Endocrine Disorders: No - HEMATOLOGICAL/ONCOLOGICAL Hx Blood Disorders: No - INTEGUMENTARY Hx Dermatological Problems: No - MUSCULOSKELETAL/RHEUMATOLOGICAL Hx Falls: No - GASTROINTESTINAL Hx Diverticulitis: Yes - GENITOURINARY/GYNECOLOGICAL Hx Genitourinary Disorders: No - PSYCHIATRIC Hx Substance Use: No - SURGICAL HISTORY Hx Surgeries: Yes (cuff rotator sx) Hx Orthopedic Surgery: Yes (shai shoulder, LEFT ELBOW SURGERY) - ANESTHESIA Hx Anesthesia: Yes Hx Anesthesia Reactions: No Hx Malignant Hyperthermia: No Meds Allergies/Adverse Reactions: Allergies Allergy/AdvReac Type Severity Reaction Status Date / Time hazelnut Allergy SWELLING Verified 05/09/17 10:46 - Medications Medications: Current Medications Acetaminophen (Tylenol 325mg Tab) 650 mg PO Q4 PRN PRN Reason: Fever >100.4 F Last Admin: 05/11/17 08:16 Dose: 650 mg Enoxaparin Sodium (Lovenox) 40 mg SC DAILY BERNY PRN Reason: Protocol Last Admin: 05/11/17 08:18 Dose: Not Given Hydromorphone HCl (Dilaudid) 1 mg IVP Q3 PRN PRN Reason: Pain, severe (8-10) Last Admin: 05/11/17 03:47 Dose: 1 mg Metronidazole (Flagyl 500mg/100ml Ns) 100 mls @ 100 mls/hr IVPB Q8 BERNY PRN Reason: Protocol Last Admin: 05/11/17 08:17 Dose: 100 mls/hr Piperacillin Sod/Tazobactam (Sod 3.375 gm/ Sodium Chloride) 100 mls @ 100 mls/ hr IVPB Q6 BERNY PRN Reason: Protocol Last Admin: 05/11/17 08:17 Dose: 100 mls/hr Sodium Chloride (Sodium Chloride 0.9%) 1,000 mls @ 150 mls/hr IV .Q6H40M [facility] Last Admin: 05/11/17 07:52 Dose: 150 mls/hr Nicotine (Nicoderm Cq) 1 patch TD DAILY [facility] Last Admin: 05/11/17 08:18 Dose: 1 patch Ondansetron HCl (Zofran Inj) 4 mg IVP Q4 PRN PRN Reason: Nausea/Vomiting Last Admin: 05/11/17 06:26 Dose: 4 mg Oxycodone/Acetaminophen (Percocet 5/325 Mg Tab) 1 tab PO Q4 PRN PRN Reason: Pain, moderate (4-7) Stop: 05/13/17 17:36 Last Admin: 05/11/17 01:17 Dose: 1 tab Pantoprazole Sodium (Protonix Inj) 40 mg IVP DAILY [facility] Last Admin: 05/11/17 08:18 Dose: 40 mg Results - Vital Signs Recent Vital Signs: Last Vital Signs Temp 100.7 F H 05/11/17 08:17 Pulse 101 H 05/11/17 08:17 Resp 20 05/11/17 08:17 BP 132/75 05/11/17 08:17 Pulse Ox 96 05/11/17 08:17 - Labs Result Diagrams: 05/11/17 05:00 05/11/17 05:00 Labs: Laboratory Results - last 24 hr 05/09/17 05/10/17 05/10/17 09:20 06:00 06:00 WBC RBC Hgb Hct MCV MCH MCHC RDW Plt Count Sodium Potassium Chloride Carbon Dioxide Anion Gap BUN Creatinine Est GFR ( Amer) Est GFR (Non-Af Amer) Random Glucose Hemoglobin A1c 5.5 Calcium Procalcitonin < 0.05 L Urine Opiates Screen Positive H Urine Methadone Screen Negative Ur Barbiturates Screen Negative Ur Phencyclidine Scrn Negative Ur Amphetamines Screen Negative U Benzodiazepines Scrn Negative U Oth Cocaine Metabols Negative U Cannabinoids Screen Positive H 05/11/17 05/11/17 05:00 05:00 WBC 20.6 H D RBC 4.14 L Hgb 12.9 Hct 38.0 MCV 91.7 MCH 31.1 H MCHC 33.9 RDW 13.3 Plt Count 251 Sodium 135 Potassium 4.4 Chloride 95 L Carbon Dioxide 31 H Anion Gap 13 BUN 5 L Creatinine 0.8 Est GFR ( Amer) > 60 Est GFR (Non-Af Amer) > 60 Random Glucose 166 H Hemoglobin A1c Calcium 9.0 Procalcitonin Urine Opiates Screen Urine Methadone Screen Ur Barbiturates Screen Ur Phencyclidine Scrn Ur Amphetamines Screen U Benzodiazepines Scrn U Oth Cocaine Metabols U Cannabinoids Screen
[2017-05-11] MEDS ORDERED: Sodium Chloride 0.9% 100 ML ONE (10:32)
[2017-05-11] MEDS ORDERED: Iohexol 300 100 ML IJ ONE (10:32)
--- NOTE | 2017-05-11 12:42 | CT ---
PROCEDURE: CT Abdomen and Pelvis with contrast HISTORY: inc wbc, emesis, inc pain COMPARISON: Abdomen pelvis CT with contrast 05/11/2017. TECHNIQUE: Contrast dose: Omnipaque 300, 100 cc. Radiation dose: Total exam DLP = 817.04 mGy-cm. This CT exam was performed using one or more of the following dose reduction techniques: Automated exposure control, adjustment of the mA and/or kV according to patient size, and/or use of iterative reconstruction technique. FINDINGS: LOWER THORAX: Unremarkable. LIVER: [id number] hepatomegaly reiterated with hepatic steatosis. GALLBLADDER AND BILE DUCTS: Unremarkable. PANCREAS: Unremarkable. No gross lesion or ductal dilatation. SPLEEN: Unremarkable. ADRENALS: Normal right adrenal. 2.6 cm left adrenal nodule reiterated. Follow-up MRI of the adrenals is advised without contrast. It remains difficult to exclude potential neoplasm though this is not favored. KIDNEYS AND URETERS: Unremarkable. No hydronephrosis. No solid mass. VASCULATURE: Unremarkable. No aortic aneurysm. BOWEL: Stomach appears mildly distend with retained oral contrast material and a bit of air. Bowel remains nonobstructive. Small bowel is generally unremarkable except for the terminal ileum which is sympathetically edematous due to segmental colitis pattern. Prominent thickening of the mid to distal sigmoid colon is reiterated moderate local right mesenteric reaction but no generalized ascites or free intraperitoneal gas. Instead, a small likely extrinsic abscesses abutting the right lateral margin of the affected sigmoid colon measuring 2.9 x 2.5 cm larger than previously shown and therefore on likely to reflect a diverticulum at this time. The differential diagnosis is intramural abscess Limited gas seen cephalad to this collection may communicate or reflect trace separate loculated gas or early abscesses. None of these is large enough to mandate radiological interventional procedure at this time though interventional, and in particular, surgical consultation can be made. APPENDIX: Normal appendix. PERITONEUM: As above. LYMPH NODES: Unremarkable. No enlarged lymph nodes. BLADDER: Unremarkable. REPRODUCTIVE: Mild prostate gland enlargement again evident. BONES: No acute fracture. OTHER FINDINGS: None. IMPRESSION: Stable diverticular pattern with likely developing abscess at the mesenteric margins of the affected perforated diverticulitis sigmoid segment as discussed above. This may be extrinsic to the affected sigmoid segment or intramural. Maximum diameter of abscess appears to measure 2.9 cm with probable associated loculated gas immediately cephalad to this collection. A large diverticulum is not felt to be present given increase in size of this gas collection. Limited oral contrast fills the cavity partially. Surgical consultation is recommended. Radiological interventional procedure unlikely to be indicated at this point though consultation can be made. Other lesser findings as discussed above. Findings discussed by telephone with surgery resident in lieu of Dr. Knox 05/11/2017 12:30 p.m..
--- NOTE | 2017-05-11 13:02 | CP.PCM.PN ---
Subjective - Date & Time of Evaluation Date of Evaluation: 05/11/17 Time of Evaluation: 07:30 - Subjective Subjective: Patient was seen this morning and examined. NAD, c/o lower abdominal pain and nausea, admits few episode of vomiting overnight after he was started on diet. denies any SOB, chest pain, admits mild dysuria, have normal BM this morning. Fever this morning. Objective - Vital Signs/Intake and Output Vital Signs (last 24 hours): Temp Pulse Resp BP Pulse Ox 98.9 F 101 H 20 132/75 96 05/11/17 11:36 05/11/17 08:17 05/11/17 08:17 05/11/17 08:17 05/11/17 08:17 - Medications Medications: Current Medications Acetaminophen (Tylenol 325mg Tab) 650 mg PO Q4 PRN PRN Reason: Fever >100.4 F Last Admin: 05/11/17 08:16 Dose: 650 mg Enoxaparin Sodium (Lovenox) 40 mg SC DAILY BERNY PRN Reason: Protocol Last Admin: 05/11/17 08:18 Dose: Not Given Hydromorphone HCl (Dilaudid) 1 mg IVP Q3 PRN PRN Reason: Pain, severe (8-10) Last Admin: 05/11/17 11:32 Dose: 1 mg Metronidazole (Flagyl 500mg/100ml Ns) 100 mls @ 100 mls/hr IVPB Q8 BERNY PRN Reason: Protocol Last Admin: 05/11/17 08:17 Dose: 100 mls/hr Piperacillin Sod/Tazobactam (Sod 3.375 gm/ Sodium Chloride) 100 mls @ 100 mls/ hr IVPB Q6 BERNY PRN Reason: Protocol Last Admin: 05/11/17 11:27 Dose: Not Given Sodium Chloride (Sodium Chloride 0.9%) 1,000 mls @ 150 mls/hr IV .Q6H40M [facility] Last Admin: 05/11/17 07:52 Dose: 150 mls/hr Nicotine (Nicoderm Cq) 1 patch TD DAILY [facility] Last Admin: 05/11/17 08:18 Dose: 1 patch Ondansetron HCl (Zofran Inj) 4 mg IVP Q4 PRN PRN Reason: Nausea/Vomiting Last Admin: 05/11/17 06:26 Dose: 4 mg Oxycodone/Acetaminophen (Percocet 5/325 Mg Tab) 1 tab PO Q4 PRN PRN Reason: Pain, moderate (4-7) Stop: 05/13/17 17:36 Last Admin: 05/11/17 01:17 Dose: 1 tab Pantoprazole Sodium (Protonix Inj) 40 mg IVP DAILY [facility] Last Admin: 05/11/17 08:18 Dose: 40 mg - Labs Labs: 05/11/17 05:00 05/11/17 05:00 - Constitutional Appears: No Acute Distress - Head Exam Head Exam: ATRAUMATIC, NORMAL INSPECTION, NORMOCEPHALIC - Eye Exam Eye Exam: EOMI, Normal appearance Pupil Exam: NORMAL ACCOMODATION - ENT Exam ENT Exam: Mucous Membranes Moist - Neck Exam Neck Exam: Normal Inspection - Respiratory Exam Respiratory Exam: Clear to Ausculation Bilateral - Cardiovascular Exam Cardiovascular Exam: REGULAR RHYTHM - GI/Abdominal Exam GI & Abdominal Exam: Guarding, Tenderness (b/l LQ), Normal Bowel Sounds - Extremities Exam Extremities Exam: Full ROM, Normal Capillary Refill, Normal Inspection - Back Exam Back Exam: NORMAL INSPECTION - Neurological Exam Neurological Exam: Alert, Awake, Oriented x3 - Psychiatric Exam Psychiatric exam: Normal Affect - Skin Skin Exam: Dry, Intact, Normal Color Assessment and Plan - Assessment and Plan (Free Text) Assessment: A/P: 51 YO M admitted for progressively worsening abdominal pain, diagnosed with diverticulitis with micro perforation Acute Abdominal pain: Diverticulitis with Microperforation - Febrile today , 100.7 - WBC: 12.1--> 20.6 today - CT consistent with acute diverticulitis with microperforation on admission - Surgery consult appreciated - NPO, IVF - Patient is taking Zosyn 3.375gm IVPB Q6H (Day#2) and Flagyl (Day 2), surgery pio' Merrem and CT abdomen , will follow up with surgery - ID, Dr. Alford consulted, will follow rec' - Continue pain management, Hydromorphone/Percocet - No surgical intervention at this time as per surgery but patient may need colon resection latter on admission, since patient have had 3 diverticulitis episodes in last 6 months Leukocytosis due to acute diverticulitis - Fever 100.7 - WBC 15-->12 --> 20.6 - f/u blood culture 05/09/17, no growth/day - C/W IV antibiotics day 2, follow up ID Dysuria - UA negative - Urine Cx 05/09/17 no growth/day History of chest pain - Improved, Noncardiac chest pain - BNP 48.9 - Troponin x 1 negative - chest x ray: no acute findings - Cardiac Cath in 2013: non obstructive CAD - Cardiology, Dr. Yeboah consulted, - Patient is cleared for surgery by Dr. Yeboah (if needed) Tobacco use disorder - Nicotine Patch for hospital course - Discussed smoking cessation Alcohol abuse - History of alcohol use 2 to 3 beers every otherday - Last alcohol use, 3 beers 3 days ago - Monitor patient - Will consider treatment if withdrawal symptoms, currently no symptoms - [facility] protocol DVT prophylaxis - Lovenox 40 SC
[2017-05-11] MEDS ORDERED: Meropenem 1 GM in Sodium Chloride 0.9% 100 ML IVPB ONE (13:19)
--- NOTE | 2017-05-11 17:42 | CP.PCM.PN ---
Subjective - Date & Time of Evaluation Date of Evaluation: 05/11/17 Time of Evaluation: 17:40 - Subjective Subjective: I D NOTE FULL CONSULT DICTATED WBC:20 C LEFT SHIFT HAVE ADDED MEROPENEM WILL ULTIMATELY NEED SURGERY Objective - Vital Signs/Intake and Output Vital Signs (last 24 hours): Temp Pulse Resp BP Pulse Ox 99.5 F 97 H 18 132/74 93 L 05/11/17 16:04 05/11/17 16:04 05/11/17 16:04 05/11/17 16:04 05/11/17 16:04 - Medications Medications: Current Medications Acetaminophen (Tylenol 325mg Tab) 650 mg PO Q4 PRN PRN Reason: Fever >100.4 F Last Admin: 05/11/17 08:16 Dose: 650 mg Enoxaparin Sodium (Lovenox) 40 mg SC DAILY BERNY PRN Reason: Protocol Last Admin: 05/11/17 13:03 Dose: 40 mg Hydromorphone HCl (Dilaudid) 1 mg IVP Q3 PRN PRN Reason: Pain, severe (8-10) Last Admin: 05/11/17 15:49 Dose: 1 mg Metronidazole (Flagyl 500mg/100ml Ns) 100 mls @ 100 mls/hr IVPB Q8 BERNY PRN Reason: Protocol Last Admin: 05/11/17 16:50 Dose: 100 mls/hr Piperacillin Sod/Tazobactam (Sod 3.375 gm/ Sodium Chloride) 100 mls @ 100 mls/ hr IVPB Q6 BERNY PRN Reason: Protocol Last Admin: 05/11/17 15:54 Dose: 100 mls/hr Sodium Chloride (Sodium Chloride 0.9%) 1,000 mls @ 150 mls/hr IV .Q6H40M [facility] Last Admin: 05/11/17 15:55 Dose: Not Given Meropenem 1 gm/ Sodium (Chloride) 100 mls @ 100 mls/hr IVPB Q8 BERNY PRN Reason: Protocol Nicotine (Nicoderm Cq) 1 patch TD DAILY [facility] Last Admin: 05/11/17 08:18 Dose: 1 patch Ondansetron HCl (Zofran Inj) 4 mg IVP Q4 PRN PRN Reason: Nausea/Vomiting Last Admin: 05/11/17 06:26 Dose: 4 mg Oxycodone/Acetaminophen (Percocet 5/325 Mg Tab) 1 tab PO Q4 PRN PRN Reason: Pain, moderate (4-7) Stop: 05/13/17 17:36 Last Admin: 05/11/17 01:17 Dose: 1 tab Pantoprazole Sodium (Protonix Inj) 40 mg IVP DAILY [facility] Last Admin: 05/11/17 08:18 Dose: 40 mg - Labs Labs: 05/11/17 05:00 05/11/17 05:00
[2017-05-11] MEDS: Meropenem 1 GM in Sodium Chloride 0.9% 100 ML IVPB SCH (17:46)
--- NOTE | 2017-05-11 18:11 | RAD ---
HISTORY: NG tube placement COMPARISON: Iliana waddell is made with 05/10/2017 FINDINGS: LUNGS: No evidence of new infiltrate or consolidation in the lungs PLEURA: No significant pleural effusion identified, no pneumothorax apparent. CARDIOVASCULAR: Normal. OSSEOUS STRUCTURES: No significant abnormalities. VISUALIZED UPPER ABDOMEN: Normal. OTHER FINDINGS: None. IMPRESSION: No active disease.
--- NOTE | 2017-05-11 18:35 | RAD ---
HISTORY: NGT placement COMPARISON: Comparison is made with the previous same-day CT of the abdomen and pelvis. FINDINGS: BOWEL: No evidence of bowel obstruction. Residual oral contrast noted in the large bowel. The NG tube seen extending to the left abdomen likely at appropriate position. BONES: Normal. OTHER FINDINGS: None. IMPRESSION: Appropriate position of the NG tube extending to the left abdomen. No evidence of bowel obstruction.
[2017-05-11] MEDS: Benzocaine/Menthol (Cepacol) Lozenge PO SCH ×5 (19:15→23:15)
--- NOTE | 2017-05-11 21:53 | CON ---
INFECTIOUS DISEASE CONSULTATION DATE: HISTORY OF PRESENT ILLNESS: The patient is a 51-year-old male who by his account has been having on and off bouts of diverticulitis over the past year. He came to the Emergency Room with abdominal pain which started apparently on 05/08/2017 and has progressively gotten worse. Pain is localized mostly in the lower abdomen and especially in the left lower quadrant. States he has problems with movement, nausea, but no vomiting. Also has some diarrhea and at present time, he has an NG tube was placed to relieve some of the pain and fluid. PAST MEDICAL HISTORY: Includes bilateral shoulder repairs. Has had a catheterization that was negative. SOCIAL HISTORY: He is a smoker. He drinks 2 beers a day few times per week. PHYSICAL EXAMINATION GENERAL: The patient is alert, cooperative and seems uncomfortable, also was in the room when examining him and attempted to calm, her fears. HEENT: Within normal limits except for an NG tube. NECK: Supple. LUNGS: He has congestion and some rhonchi at the left base. HEART: Regular sinus rhythm. ABDOMEN: He has positive bowel sounds, but also he has NG tube in place and he has right and left lower quadrant tenderness. Does not appear to have rebound, but appears to have severe pain. EXTREMITIES: No CCE. LABORATORY DATA: Cultures are all pending or negative so far. Creatinine 0.8, GFR greater than 60 and blood sugar is 116. Procalcitonin is 0.05. Reports CT of abdomen and pelvis, stable diverticular patten with likely developing abscesses at the mesenteric margins of the effected perforated diverticulitis, sigmoid segment has discussed in a previous meeting. IMPRESSION: This may be extrinsic to the affected sigmoid segment or intramural. Maximum diameter the abscess appears to be measures 2.9 cm which is probably associated with loculated gas immediately collection. Wedge diverticulum is not felt to be present, given increase in size of the gas collection, limited oral contrasts of the cavity partially. Surgical consultation is recommended, radiological intervention and Surgery will follow up. This has all been done. At present time, agree with the use of Flagyl and Zosyn. I have added meropenem for possible resistant Gram negative coverage his white count is 20. Deserves this benefit of this coverage. We will evaluate with you. Mariano Carey MD [facility] # [id number]
--- NOTE | 2017-05-11 22:55 | CARD ---
APPROVED REPORT EKG Measurement Heart [id number] ID [id number] <Conclusion> Sinus tachycardia Left axis deviation Nonspecific ST abnormality Abnormal ECG
[2017-05-12] MEDS: Benzocaine/Menthol (Cepacol) Lozenge PO SCH ×18 (00:15→20:16)
[2017-05-12] MEDS: metroNIDAZOLE 500mg/100ml NS 100 ML IVPB SCH ×3 (00:30→16:02)
[2017-05-12] MEDS: Meropenem 1 GM in Sodium Chloride 0.9% 100 ML IVPB SCH ×3 (01:32→16:03)
[2017-05-12] MEDS: Sodium Chloride 0.9% 1,000 ML IV SCH ×3 (03:45→10:45)
[2017-05-12] MEDS: Piperacillin/Tazobact 3.375 GM in Sodium Chloride 0.9% 100 ML IVPB SCH ×4 (04:00→21:39)
--- NOTE | 2017-05-12 07:36 | CP.PCM.PN ---
Subjective - Date & Time of Evaluation Date of Evaluation: 05/12/17 Time of Evaluation: 07:34 - Subjective Subjective: General Surgery: Dr Figueroa Pt S&E. Reports pain much improved. Denies N/V, F/C, SOB or chest pain. Pt is very aggitated by NGT. States if not removed he will remove it himself. There is minimal output. Instructed pt if he vomits he will require it be replaced. PT agrees and is compliant. Otherwise condition improved. BEing seen by ID, who has added Merrem, we will trend the WBC and monitor for fevers Pt is agreeable to surgery on this admission. Cont abx and NPO status until early next week. Cleared by cardiology Objective - Vital Signs/Intake and Output Vital Signs (last 24 hours): Temp Pulse Resp BP Pulse Ox 98.8 F 96 H 20 147/78 95 05/12/17 00:00 05/12/17 00:00 05/12/17 00:00 05/12/17 00:00 05/12/17 00:00 - Medications Medications: Current Medications Acetaminophen (Tylenol 325mg Tab) 650 mg PO Q4 PRN PRN Reason: Fever >100.4 F Last Admin: 05/11/17 08:16 Dose: 650 mg Benzocaine/Menthol (Cepacol Sore Throat) 1 terence PO Q1H [facility] Last Admin: 05/12/17 06:52 Dose: Not Given Enoxaparin Sodium (Lovenox) 40 mg SC DAILY [facility] PRN Reason: Protocol Last Admin: 05/11/17 13:03 Dose: 40 mg Hydromorphone HCl (Dilaudid) 1 mg IVP Q3 PRN PRN Reason: Pain, severe (8-10) Last Admin: 05/12/17 03:40 Dose: 1 mg Metronidazole (Flagyl 500mg/100ml Ns) 100 mls @ 100 mls/hr IVPB Q8 [facility] PRN Reason: Protocol Last Admin: 05/12/17 00:30 Dose: 100 mls/hr Piperacillin Sod/Tazobactam (Sod 3.375 gm/ Sodium Chloride) 100 mls @ 100 mls/ hr IVPB Q6 [facility] PRN Reason: Protocol Last Admin: 05/12/17 04:00 Dose: 100 mls/hr Sodium Chloride (Sodium Chloride 0.9%) 1,000 mls @ 150 mls/hr IV .Q6H40M [facility] Last Admin: 05/12/17 03:45 Dose: Not Given Meropenem 1 gm/ Sodium (Chloride) 100 mls @ 100 mls/hr IVPB Q8 [facility] PRN Reason: Protocol Last Admin: 05/12/17 01:32 Dose: 100 mls/hr Nicotine (Nicoderm Cq) 1 patch TD DAILY [facility] Last Admin: 05/11/17 08:18 Dose: 1 patch Ondansetron HCl (Zofran Inj) 4 mg IVP Q4 PRN PRN Reason: Nausea/Vomiting Last Admin: 05/11/17 06:26 Dose: 4 mg Oxycodone/Acetaminophen (Percocet 5/325 Mg Tab) 1 tab PO Q4 PRN PRN Reason: Pain, moderate (4-7) Stop: 05/13/17 17:36 Last Admin: 05/11/17 01:17 Dose: 1 tab Pantoprazole Sodium (Protonix Inj) 40 mg IVP DAILY [facility] Last Admin: 05/11/17 08:18 Dose: 40 mg - Labs Labs: 05/11/17 05:00 05/11/17 05:00 - Constitutional Appears: Non-toxic, No Acute Distress - Head Exam Head Exam: NORMAL INSPECTION - Eye Exam Eye Exam: Normal appearance - ENT Exam ENT Exam: Mucous Membranes Moist - Respiratory Exam Respiratory Exam: NORMAL BREATHING PATTERN - Cardiovascular Exam Cardiovascular Exam: REGULAR RHYTHM. absent: Tachycardia - GI/Abdominal Exam GI & Abdominal Exam: Soft, Tenderness (LLQ but improved). absent: Distended, Firm, Guarding, Rigid - Neurological Exam Neurological Exam: Alert, Awake, Oriented x3 - Psychiatric Exam Psychiatric exam: Normal Affect, Normal Mood - Skin Skin Exam: Normal Color, Warm Assessment and Plan - Assessment and Plan (Free Text) Assessment: 51M with recurrent diverticulitis Plan: maintain NPO cont IV abx as per ID d/c NGT - please call surgery team if pt is nauseous or vomits again cont IV hydration will plan for surgery next week with Dr Henry Knox, PGY3
[2017-05-12 08:34] LABS: BASO % 0.1 % (0.0-2.0); HEMOGLOBIN 11.7 g/dL (12.0-18.0); LYMPH # 0.8 K/uL (1.0-4.3); LYMPH % 4.7 % (20.0-40.0); MEAN CELL VOLUME 91.4 fl (80.0-94.0); MEAN CORPUSCULAR HEMOGLOBIN 31.4 pg (27.0-31.0); MEAN CORPUSCULAR HGB CONC 34.3 g/dL (33.0-37.0); MEAN PLATELET VOLUME 7.7 fl (7.2-11.7); MONO # 1.9 K/uL (0.0-0.8); MONO % 11.3 % (0.0-10.0); NEUT # 14.4 K/uL (1.8-7.0); NEUT % 83.9 % (50.0-75.0); RBC 3.73 Mil/uL (4.40-5.90); WHITE BLOOD COUNT 17.2 K/uL (4.8-10.8)
[2017-05-12] MEDS: Enoxaparin 40 mg Syringe SC SCH (08:42)
[2017-05-12 08:44] LABS: BLOOD UREA NITROGEN 8 mg/dl (9-20); CALCIUM 8.9 mg/dL (8.4-10.2); GFR AFRICAN-AMERICAN > 60; GFR NON-AFRICAN AMERICAN > 60
--- NOTE | 2017-05-12 09:54 | CP.PCM.PN ---
Subjective - Date & Time of Evaluation Date of Evaluation: 05/12/17 Time of Evaluation: 08:30 - Subjective Subjective: Patient seen and examined at bedside. He is lying supine in bed and reports mild /moderate LLQ abdominal pain overnight. He remains NPO but reports some appetite returning. He was afebrile overnight. He further denies nausea, vomiting or diarrhea. Objective - Vital Signs/Intake and Output Vital Signs (last 24 hours): Temp Pulse Resp BP Pulse Ox 98.7 F 90 20 162/81 H 96 05/12/17 08:23 05/12/17 08:23 05/12/17 08:23 05/12/17 08:23 05/12/17 08:23 - Medications Medications: Current Medications Acetaminophen (Tylenol 325mg Tab) 650 mg PO Q4 PRN PRN Reason: Fever >100.4 F Last Admin: 05/11/17 08:16 Dose: 650 mg Benzocaine/Menthol (Cepacol Sore Throat) 1 terence PO Q1H [facility] Last Admin: 05/12/17 09:24 Dose: Not Given Enoxaparin Sodium (Lovenox) 40 mg SC DAILY [facility] PRN Reason: Protocol Last Admin: 05/12/17 08:42 Dose: 40 mg Hydromorphone HCl (Dilaudid) 1 mg IVP Q3 PRN PRN Reason: Pain, severe (8-10) Last Admin: 05/12/17 07:50 Dose: 1 mg Metronidazole (Flagyl 500mg/100ml Ns) 100 mls @ 100 mls/hr IVPB Q8 [facility] PRN Reason: Protocol Last Admin: 05/12/17 08:42 Dose: 100 mls/hr Piperacillin Sod/Tazobactam (Sod 3.375 gm/ Sodium Chloride) 100 mls @ 100 mls/ hr IVPB Q6 [facility] PRN Reason: Protocol Last Admin: 05/12/17 09:24 Dose: 100 mls/hr Sodium Chloride (Sodium Chloride 0.9%) 1,000 mls @ 150 mls/hr IV .Q6H40M [facility] Last Admin: 05/12/17 07:51 Dose: 150 mls/hr Meropenem 1 gm/ Sodium (Chloride) 100 mls @ 100 mls/hr IVPB Q8 [facility] PRN Reason: Protocol Last Admin: 05/12/17 08:43 Dose: 100 mls/hr Nicotine (Nicoderm Cq) 1 patch TD DAILY [facility] Last Admin: 05/12/17 08:42 Dose: 1 patch Ondansetron HCl (Zofran Inj) 4 mg IVP Q4 PRN PRN Reason: Nausea/Vomiting Last Admin: 05/11/17 06:26 Dose: 4 mg Oxycodone/Acetaminophen (Percocet 5/325 Mg Tab) 1 tab PO Q4 PRN PRN Reason: Pain, moderate (4-7) Stop: 05/13/17 17:36 Last Admin: 05/11/17 01:17 Dose: 1 tab Pantoprazole Sodium (Protonix Inj) 40 mg IVP DAILY [facility] Last Admin: 05/12/17 08:43 Dose: 40 mg - Labs Labs: 05/12/17 07:50 05/12/17 07:50 - Constitutional Appears: Non-toxic, No Acute Distress - Head Exam Head Exam: ATRAUMATIC, NORMAL INSPECTION, NORMOCEPHALIC - Eye Exam Eye Exam: EOMI, PERRL. absent: Scleral icterus - ENT Exam ENT Exam: Mucous Membranes Dry - Respiratory Exam Respiratory Exam: Clear to Ausculation Bilateral, NORMAL BREATHING PATTERN. absent: Rales, Rhonchi, Wheezes, Respiratory Distress - Cardiovascular Exam Cardiovascular Exam: REGULAR RHYTHM, RRR, +S1, +S2 - GI/Abdominal Exam GI & Abdominal Exam: Soft, Tenderness (Poorly localized left sided and left lower abdominal tenderness with no rebound), Normal Bowel Sounds. absent: Distended, Guarding, Rebound - Extremities Exam Extremities Exam: Normal Capillary Refill. absent: Calf Tenderness, Pedal Edema - Neurological Exam Neurological Exam: Alert, Awake, Oriented x3 Additional comments: No tremors - Psychiatric Exam Psychiatric exam: Normal Affect, Normal Mood - Skin Skin Exam: Dry, Warm Assessment and Plan - Assessment and Plan (Free Text) Assessment: 51 y/o M with history of 2 previous episodes of diverticulitis within the last year, admitted for progressively worsening abdominal pain and diagnosed with recurrent diverticulitis with micro perforation. Plan: Recurrent acute diverticulitis, with microperforation -Patient afebrile today. Tmax 24h: 99.7 at 09:16 on 05/11/17. Last fever: 100.7 08:17 on 05/11/17 -WBC improving 20.6 > 17.2 -CT consistent with acute diverticulitis with microperforation on admission -Surgery consult appreciated who plans for possible surgical intervention due to recurrent previous episodes -ID consultation by Dr. Alford appreciated -Will continue IV antiobiotics: Zosyn 3.375gm IV Q6h (Started 05/10, Current day 3) Flagyl 500mg IV Q8h (Started 05/10, Current day 3) Meropenem 1gm IV Q8h (Started 05/11, Current day 2). -Dilaudid 1mg IV Q3h prn -Will remain NPO -Continue IVF Leukocytosis, improving -Secondary to acute diverticulitis -WBC improving 20.6 > 17.2 -Afebrile -Blood culture x2 from 05/09, reveals no growth after 48 hrs -Urine culture no growth, final History of chest pain -Asymptomatic -Cardiac Cath in 2013: non obstructive CAD -Cardiology, Dr. Yeboah consulted for pre-op cardiac risk assessment -Patient is cleared for surgery by Dr. Yeboah Tobacco use disorder -Nicotine Patch for hospital course -Discussed smoking cessation Alcohol abuse -History of alcohol use 2 to 3 beers every other day -Last alcohol use, 3 beers 4 days ago -No signs of withdrawal. Will continue to monitor -Will consider treatment if withdrawal symptoms, currently no symptoms -[facility]WA protocol DVT prophylaxis -Lovenox 40mg SC daily
[2017-05-12] MEDS: Potassium Ch 20mEq in D5-1/2NS 1,000 ML IV SCH ×3 (12:41→21:42)
--- NOTE | 2017-05-12 17:13 | CP.PCM.PN ---
Subjective - Date & Time of Evaluation Date of Evaluation: 05/12/17 Time of Evaluation: 17:07 - Subjective Subjective: I D NOTE AFEBRILE SO FAR TODAY NG TUBE REMOVED WBC:17 DOWN FROM 20 SURGERY EARLY NEXT WEEK ? Objective - Vital Signs/Intake and Output Vital Signs (last 24 hours): Temp Pulse Resp BP Pulse Ox 98.4 F 98 H 20 148/77 98 05/12/17 16:22 05/12/17 16:22 05/12/17 16:22 05/12/17 16:22 05/12/17 16:22 - Medications Medications: Current Medications Acetaminophen (Tylenol 325mg Tab) 650 mg PO Q4 PRN PRN Reason: Fever >100.4 F Last Admin: 05/11/17 08:16 Dose: 650 mg Benzocaine/Menthol (Cepacol Sore Throat) 1 terence PO Q1H [facility] Last Admin: 05/12/17 16:03 Dose: Not Given Enoxaparin Sodium (Lovenox) 40 mg SC DAILY [facility] PRN Reason: Protocol Last Admin: 05/12/17 08:42 Dose: 40 mg Hydromorphone HCl (Dilaudid) 1 mg IVP Q3 PRN PRN Reason: Pain, severe (8-10) Last Admin: 05/12/17 17:05 Dose: 1 mg Metronidazole (Flagyl 500mg/100ml Ns) 100 mls @ 100 mls/hr IVPB Q8 [facility] PRN Reason: Protocol Last Admin: 05/12/17 16:02 Dose: 100 mls/hr Piperacillin Sod/Tazobactam (Sod 3.375 gm/ Sodium Chloride) 100 mls @ 100 mls/ hr IVPB Q6 [facility] PRN Reason: Protocol Last Admin: 05/12/17 16:03 Dose: 100 mls/hr Meropenem 1 gm/ Sodium (Chloride) 100 mls @ 100 mls/hr IVPB Q8 [facility] PRN Reason: Protocol Last Admin: 05/12/17 16:03 Dose: 100 mls/hr Potassium Chloride/Dextrose/Sod Cl (Potassium Chl 20 Meq In D5-1/2ns) 1,000 mls @ 125 mls/hr IV .Q8H [facility] Stop: 05/13/17 11:35 Last Admin: 05/12/17 12:41 Dose: 125 mls/hr Nicotine (Nicoderm Cq) 1 patch TD DAILY [facility] Last Admin: 05/12/17 08:42 Dose: 1 patch Ondansetron HCl (Zofran Inj) 4 mg IVP Q4 PRN PRN Reason: Nausea/Vomiting Last Admin: 05/11/17 06:26 Dose: 4 mg Oxycodone/Acetaminophen (Percocet 5/325 Mg Tab) 1 tab PO Q4 PRN PRN Reason: Pain, moderate (4-7) Stop: 05/13/17 17:36 Last Admin: 05/11/17 01:17 Dose: 1 tab Pantoprazole Sodium (Protonix Inj) 40 mg IVP DAILY [facility] Last Admin: 05/12/17 08:43 Dose: 40 mg - Labs Labs: 05/12/17 07:50 05/12/17 07:50
[2017-05-12] MEDS ORDERED: Benzocaine/Menthol (Cepacol) Lozenge PO PRN (20:39)
[2017-05-12] MEDS ORDERED: DiphenhydrAMINE 50 mg/ml Inj IVP ONE (22:42)
[2017-05-13] MEDS: Potassium Ch 20mEq in D5-1/2NS 1,000 ML IV SCH ×2 (00:30→03:45)
[2017-05-13] MEDS: metroNIDAZOLE 500mg/100ml NS 100 ML IVPB SCH ×3 (00:36→16:30)
[2017-05-13] MEDS: Meropenem 1 GM in Sodium Chloride 0.9% 100 ML IVPB SCH ×3 (01:39→16:29)
[2017-05-13] MEDS: Piperacillin/Tazobact 3.375 GM in Sodium Chloride 0.9% 100 ML IVPB SCH ×4 (04:00→21:25)
[2017-05-13 07:18] LABS: BASO % 0.1 % (0.0-2.0); EOS % 0.1 % (0.0-4.0); HEMOGLOBIN 12.5 g/dL (12.0-18.0); LYMPH # 0.9 K/uL (1.0-4.3); LYMPH % 6.2 % (20.0-40.0); MEAN CELL VOLUME 89.8 fl (80.0-94.0); MEAN CORPUSCULAR HEMOGLOBIN 31.6 pg (27.0-31.0); MEAN CORPUSCULAR HGB CONC 35.1 g/dL (33.0-37.0); MEAN PLATELET VOLUME 7.2 fl (7.2-11.7); MONO # 2.1 K/uL (0.0-0.8); MONO % 14.4 % (0.0-10.0); NEUT # 11.7 K/uL (1.8-7.0); NEUT % 79.2 % (50.0-75.0); PLATELET COUNT 296 K/uL (130-400); RBC 3.96 Mil/uL (4.40-5.90); RED CELL DISTRIBUTION WIDTH 12.9 % (11.5-14.5); WHITE BLOOD COUNT 14.8 K/uL (4.8-10.8)
[2017-05-13 07:40] LABS: BLOOD UREA NITROGEN 6 mg/dl (9-20); CALCIUM 8.9 mg/dL (8.4-10.2); GFR AFRICAN-AMERICAN > 60; GFR NON-AFRICAN AMERICAN > 60
--- NOTE | 2017-05-13 08:42 | CP.PCM.PN ---
Subjective - Date & Time of Evaluation Date of Evaluation: 05/13/17 Time of Evaluation: 06:20 - Subjective Subjective: General surgery- Dr. Figueroa patient seen and examined at bedside this AM. no new complaints. no acute events overnight. Pt resting comfortably during time of encounter. Pain well controlled at this time. denies fevers, chills, chest pain, shortness of breath. Objective - Vital Signs/Intake and Output Vital Signs (last 24 hours): Temp Pulse Resp BP Pulse Ox 99.7 F H 90 20 138/72 95 05/13/17 08:22 05/13/17 08:22 05/13/17 08:22 05/13/17 08:22 05/13/17 08:22 - Medications Medications: Current Medications Acetaminophen (Tylenol 325mg Tab) 650 mg PO Q4 PRN PRN Reason: Fever >100.4 F Last Admin: 05/11/17 08:16 Dose: 650 mg Benzocaine/Menthol (Cepacol Sore Throat) 1 terence PO Q1H PRN PRN Reason: Sore Throat Enoxaparin Sodium (Lovenox) 40 mg SC DAILY [facility] PRN Reason: Protocol Last Admin: 05/12/17 08:42 Dose: 40 mg Hydromorphone HCl (Dilaudid) 1 mg IVP Q3 PRN PRN Reason: Pain, severe (8-10) Last Admin: 05/13/17 06:43 Dose: 1 mg Metronidazole (Flagyl 500mg/100ml Ns) 100 mls @ 100 mls/hr IVPB Q8 [facility] PRN Reason: Protocol Last Admin: 05/13/17 00:36 Dose: 100 mls/hr Piperacillin Sod/Tazobactam (Sod 3.375 gm/ Sodium Chloride) 100 mls @ 100 mls/ hr IVPB Q6 [facility] PRN Reason: Protocol Last Admin: 05/13/17 04:00 Dose: 100 mls/hr Meropenem 1 gm/ Sodium (Chloride) 100 mls @ 100 mls/hr IVPB Q8 [facility] PRN Reason: Protocol Last Admin: 05/13/17 01:39 Dose: 100 mls/hr Potassium Chloride/Dextrose/Sod Cl (Potassium Chl 20 Meq In D5-1/2ns) 1,000 mls @ 125 mls/hr IV .Q8H [facility] Stop: 05/13/17 11:35 Last Admin: 05/13/17 03:45 Dose: Not Given Lorazepam (Ativan) 0.5 mg IVP Q2 PRN PRN Reason: Symptoms of alcohol withdrawl Nicotine (Nicoderm Cq) 1 patch TD DAILY [facility] Last Admin: 05/12/17 08:42 Dose: 1 patch Ondansetron HCl (Zofran Inj) 4 mg IVP Q4 PRN PRN Reason: Nausea/Vomiting Last Admin: 05/11/17 06:26 Dose: 4 mg Oxycodone/Acetaminophen (Percocet 5/325 Mg Tab) 1 tab PO Q4 PRN PRN Reason: Pain, moderate (4-7) Stop: 05/13/17 17:36 Last Admin: 05/11/17 01:17 Dose: 1 tab Pantoprazole Sodium (Protonix Inj) 40 mg IVP DAILY [facility] Last Admin: 05/12/17 08:43 Dose: 40 mg - Labs Labs: 05/13/17 05:20 05/13/17 05:20 - Constitutional Appears: Non-toxic, No Acute Distress - Head Exam Head Exam: ATRAUMATIC - Eye Exam Eye Exam: EOMI. absent: Scleral icterus - ENT Exam ENT Exam: Mucous Membranes Moist - Respiratory Exam Respiratory Exam: NORMAL BREATHING PATTERN. absent: Accessory Muscle Use, Respiratory Distress - Cardiovascular Exam Cardiovascular Exam: +S1, +S2. absent: Bradycardia, Tachycardia - GI/Abdominal Exam GI & Abdominal Exam: Soft, Tenderness. absent: Distended, Firm, Guarding, Rigid Additional comments: tender in RLQ - Extremities Exam Extremities Exam: Normal Inspection. absent: Calf Tenderness - Neurological Exam Neurological Exam: Alert, Awake, Oriented x3 - Psychiatric Exam Psychiatric exam: Normal Affect - Skin Skin Exam: Intact, Warm Assessment and Plan - Assessment and Plan (Free Text) Assessment: 51M with recurrent diverticulitis Leukocytosis resolving Plan: - NPO - IVF - IV Abx per ID - patient is agreeable to surgery during this hospital visit - [facility] protocol - further recs per Dr. Figueroa surgical attending - trend jennifer Alcantara PGY1
[2017-05-13] MEDS ORDERED: Potassium Chloride 20 mEq/15 ml LIQ UD PO ONE (08:54)
[2017-05-13] MEDS ORDERED: Sodium Chloride 0.9% 1,000 ML IV SCH (09:00)
--- NOTE | 2017-05-13 09:38 | CP.PCM.PN ---
Subjective - Date & Time of Evaluation Date of Evaluation: 05/13/17 Time of Evaluation: 09:00 - Subjective Subjective: Patient seen and examined at bedside. He is lying in bed in no acute distress. Patient reports his abdominal pain improved overnight and is "very little" this morning. He remains NPO with no nausea or vomiting. He was seen by general surgery this morning and has plan for surgical intervention during admission. No fevers, chills, tremors or hallucinations overnight. Objective - Vital Signs/Intake and Output Vital Signs (last 24 hours): Temp Pulse Resp BP Pulse Ox 99.7 F H 90 20 138/72 95 05/13/17 08:22 05/13/17 08:22 05/13/17 08:22 05/13/17 08:22 05/13/17 08:22 - Medications Medications: Current Medications Acetaminophen (Tylenol 325mg Tab) 650 mg PO Q4 PRN PRN Reason: Fever >100.4 F Last Admin: 05/11/17 08:16 Dose: 650 mg Benzocaine/Menthol (Cepacol Sore Throat) 1 terence PO Q1H PRN PRN Reason: Sore Throat Enoxaparin Sodium (Lovenox) 40 mg SC DAILY [facility] PRN Reason: Protocol Last Admin: 05/12/17 08:42 Dose: 40 mg Hydromorphone HCl (Dilaudid) 1 mg IVP Q3 PRN PRN Reason: Pain, severe (8-10) Last Admin: 05/13/17 06:43 Dose: 1 mg Metronidazole (Flagyl 500mg/100ml Ns) 100 mls @ 100 mls/hr IVPB Q8 [facility] PRN Reason: Protocol Last Admin: 05/13/17 00:36 Dose: 100 mls/hr Piperacillin Sod/Tazobactam (Sod 3.375 gm/ Sodium Chloride) 100 mls @ 100 mls/ hr IVPB Q6 [facility] PRN Reason: Protocol Last Admin: 05/13/17 04:00 Dose: 100 mls/hr Meropenem 1 gm/ Sodium (Chloride) 100 mls @ 100 mls/hr IVPB Q8 [facility] PRN Reason: Protocol Last Admin: 05/13/17 01:39 Dose: 100 mls/hr Sodium Chloride (Sodium Chloride 0.9%) 1,000 mls @ 150 mls/hr IV .Q6H40M [facility] Stop: 05/14/17 08:54 Lorazepam (Ativan) 0.5 mg IVP Q2 PRN PRN Reason: Symptoms of alcohol withdrawl Nicotine (Nicoderm Cq) 1 patch TD DAILY [facility] Last Admin: 05/12/17 08:42 Dose: 1 patch Ondansetron HCl (Zofran Inj) 4 mg IVP Q4 PRN PRN Reason: Nausea/Vomiting Last Admin: 05/11/17 06:26 Dose: 4 mg Oxycodone/Acetaminophen (Percocet 5/325 Mg Tab) 1 tab PO Q4 PRN PRN Reason: Pain, moderate (4-7) Stop: 05/13/17 17:36 Last Admin: 05/11/17 01:17 Dose: 1 tab Pantoprazole Sodium (Protonix Inj) 40 mg IVP DAILY [facility] Last Admin: 05/12/17 08:43 Dose: 40 mg - Labs Labs: 05/13/17 05:20 05/13/17 05:20 - Constitutional Appears: Non-toxic, No Acute Distress - Head Exam Head Exam: ATRAUMATIC, NORMAL INSPECTION, NORMOCEPHALIC - Eye Exam Eye Exam: EOMI. absent: Scleral icterus - ENT Exam ENT Exam: Mucous Membranes Moist - Respiratory Exam Respiratory Exam: Clear to Ausculation Bilateral, NORMAL BREATHING PATTERN. absent: Rhonchi, Wheezes, Respiratory Distress - Cardiovascular Exam Cardiovascular Exam: REGULAR RHYTHM, RRR, +S1, +S2 - GI/Abdominal Exam GI & Abdominal Exam: Guarding (Voluntary ), Soft, Tenderness (Poorly localized lower abdominal tenderness), Normal Bowel Sounds. absent: Distended - Extremities Exam Extremities Exam: Normal Capillary Refill. absent: Calf Tenderness, Pedal Edema - Neurological Exam Neurological Exam: Alert, Awake, Oriented x3 - Psychiatric Exam Psychiatric exam: Normal Affect, Normal Mood - Skin Skin Exam: Dry, Warm Assessment and Plan - Assessment and Plan (Free Text) Assessment: 51 y/o M with history of 2 previous episodes of diverticulitis within the last year, admitted for progressively worsening abdominal pain and diagnosed with recurrent diverticulitis with micro perforation. Plan: Recurrent acute diverticulitis, with microperforation -Patient afebrile today. T: 99.7. Last fever: 100.7 08:17 on 05/11/17 -WBC improving 20.6 > 17.2 > 14.8 -CT consistent with acute diverticulitis with microperforation on admission -Surgery consult appreciated who plans for possible surgical intervention due to recurrent previous episodes -ID consultation by Dr. Alford appreciated -Will continue IV antiobiotics: Zosyn 3.375gm IV Q6h (Started 05/10, Current day 4) Flagyl 500mg IV Q8h (Started 05/10, Current day 4) Meropenem 1gm IV Q8h (Started 05/11, Current day 3) -Dilaudid 1mg IV Q3h prn -Will remain NPO -Continue IVF Leukocytosis, improving -Secondary to acute diverticulitis -WBC improving 20.6 > 17.2 -Afebrile -Blood culture x2 from 05/09, reveals no growth after 3 days -Urine culture no growth, final History of chest pain -Asymptomatic -Cardiac Cath in 2013: non obstructive CAD -Cardiology, Dr. Yeboah consulted for pre-op cardiac risk assessment -Patient is cleared for surgery by Dr. Yeboah Tobacco use disorder -Nicotine Patch for hospital course -Discussed smoking cessation Alcohol abuse -History of alcohol use 2 to 3 beers every other day -Last used alcohol 2 days prior to admission -No signs of withdrawal. Will continue to monitor -[facility] protocol -Ativan 0.5mg IV Q2h prn for symptoms of withdrawal ordered by general surgery DVT prophylaxis -Lovenox 40mg SC daily
[2017-05-13] MEDS: Enoxaparin 40 mg Syringe SC SCH (09:50)
[2017-05-13 10:22] LABS: BASOPHIL 1 % (0-2); LYMPHOCYTE 2 % (20-50); MONOCYTE 10 % (0-10); NEUTROPHIL 87 % (42-75); PLATELET ESTIMATE NORMAL (NORMAL); TOTAL CELLS COUNTED 100
[2017-05-13 10:23] LABS: ANISOCYTOSIS SLIGHT; LARGE PLATELETS PRESENT; MICROCYTOSIS SLIGHT; TEARDROP CELLS SLIGHT
[2017-05-13] MEDS: Potassium Chl 20 mEq in D5-NS 1,000 ML IV SCH ×2 (14:52→22:19)
[2017-05-13] MEDS ORDERED: DiphenhydrAMINE 50 mg/ml Inj IVP ONE (23:23)
[2017-05-14] MEDS: metroNIDAZOLE 500mg/100ml NS 100 ML IVPB SCH ×3 (00:44→16:25)
[2017-05-14] MEDS: Meropenem 1 GM in Sodium Chloride 0.9% 100 ML IVPB SCH ×3 (02:14→16:28)
[2017-05-14] MEDS: Piperacillin/Tazobact 3.375 GM in Sodium Chloride 0.9% 100 ML IVPB SCH ×4 (03:58→21:07)
[2017-05-14 06:58] LABS: BLOOD UREA NITROGEN 7 mg/dl (9-20); GFR AFRICAN-AMERICAN > 60; GFR NON-AFRICAN AMERICAN > 60
[2017-05-14 06:59] LABS: CALCIUM 8.7 mg/dL (8.4-10.2)
--- NOTE | 2017-05-14 08:04 | CP.PCM.PN ---
Subjective - Date & Time of Evaluation Date of Evaluation: 05/14/17 Time of Evaluation: 08:01 - Subjective Subjective: General Surgery: Dr Figueroa Pt S&E. Reports pain has essentially resolved. Denies n/v, f/c, sob or chest pain. Had single episode of nausea following liquid K yesterday. States he is hungry now. Passing flatus. Had liquid BM. Objective - Vital Signs/Intake and Output Vital Signs (last 24 hours): Temp Pulse Resp BP Pulse Ox 99 F 90 20 138/77 97 05/14/17 07:57 05/14/17 07:57 05/14/17 07:57 05/14/17 07:57 05/14/17 07:57 - Medications Medications: Current Medications Acetaminophen (Tylenol 325mg Tab) 650 mg PO Q4 PRN PRN Reason: Fever >100.4 F Last Admin: 05/11/17 08:16 Dose: 650 mg Benzocaine/Menthol (Cepacol Sore Throat) 1 terence PO Q1H PRN PRN Reason: Sore Throat Enoxaparin Sodium (Lovenox) 40 mg SC DAILY [facility] PRN Reason: Protocol Last Admin: 05/13/17 09:50 Dose: 40 mg Hydromorphone HCl (Dilaudid) 1 mg IVP Q3 PRN PRN Reason: Pain, severe (8-10) Last Admin: 05/14/17 06:05 Dose: 1 mg Metronidazole (Flagyl 500mg/100ml Ns) 100 mls @ 100 mls/hr IVPB Q8 [facility] PRN Reason: Protocol Last Admin: 05/14/17 00:44 Dose: 100 mls/hr Piperacillin Sod/Tazobactam (Sod 3.375 gm/ Sodium Chloride) 100 mls @ 100 mls/ hr IVPB Q6 [facility] PRN Reason: Protocol Last Admin: 05/14/17 03:58 Dose: 100 mls/hr Meropenem 1 gm/ Sodium (Chloride) 100 mls @ 100 mls/hr IVPB Q8 [facility] PRN Reason: Protocol Last Admin: 05/14/17 02:14 Dose: 100 mls/hr Lorazepam (Ativan) 0.5 mg IVP Q2 PRN PRN Reason: Symptoms of alcohol withdrawl Nicotine (Nicoderm Cq) 1 patch TD DAILY [facility] Last Admin: 05/13/17 09:47 Dose: 1 patch Ondansetron HCl (Zofran Inj) 4 mg IVP Q4 PRN PRN Reason: Nausea/Vomiting Last Admin: 05/11/17 06:26 Dose: 4 mg Pantoprazole Sodium (Protonix Inj) 40 mg IVP DAILY [facility] Last Admin: 05/13/17 09:47 Dose: 40 mg - Labs Labs: 05/13/17 05:20 05/14/17 06:20 - Constitutional Appears: Non-toxic, No Acute Distress - Head Exam Head Exam: NORMAL INSPECTION - ENT Exam ENT Exam: Mucous Membranes Moist - Respiratory Exam Respiratory Exam: NORMAL BREATHING PATTERN. absent: Accessory Muscle Use, Respiratory Distress - Cardiovascular Exam Cardiovascular Exam: REGULAR RHYTHM. absent: Tachycardia - GI/Abdominal Exam GI & Abdominal Exam: Soft, Mass (inflammatory in LLQ). absent: Distended, Rigid , Tenderness - Extremities Exam Extremities Exam: absent: Pedal Edema - Neurological Exam Neurological Exam: Alert, Awake, Oriented x3 - Psychiatric Exam Psychiatric exam: Normal Affect, Normal Mood - Skin Skin Exam: Normal Color, Warm Assessment and Plan - Assessment and Plan (Free Text) Assessment: 51M with recurrent diverticulitis Plan: trial CLD today bowel prep tomorrow - orders will be placed by surgery team plan for colon resection sunday cleared by cardiology will d/w primary team d/w Dr Henry Knox, PGY3
[2017-05-14] MEDS: Enoxaparin 40 mg Syringe SC SCH (09:02)
[2017-05-14] MEDS ORDERED: Potassium Chloride 20 mEq/15 ml LIQ UD PO ONE (09:58)
[2017-05-14] MEDS: Potassium Chloride 20 mEq ER Tab PO SCH ×2 (12:05→15:00)
--- NOTE | 2017-05-14 12:11 | CP.PCM.PN ---
Subjective - Date & Time of Evaluation Date of Evaluation: 05/14/17 Time of Evaluation: 09:00 - Subjective Subjective: Patient seen and examined, NAD, patient was tolerating PO clear diet. Admits mild LLQ abdominal pain but well controlled on pain medication. patient denies any fever, chills, n/v/d, chest pain, SOB, urinary symptoms or weakness. Objective - Vital Signs/Intake and Output Vital Signs (last 24 hours): Temp Pulse Resp BP Pulse Ox 99 F 90 20 138/77 97 05/14/17 07:57 05/14/17 07:57 05/14/17 07:57 05/14/17 07:57 05/14/17 07:57 - Medications Medications: Current Medications Acetaminophen (Tylenol 325mg Tab) 650 mg PO Q4 PRN PRN Reason: Fever >100.4 F Last Admin: 05/11/17 08:16 Dose: 650 mg Benzocaine/Menthol (Cepacol Sore Throat) 1 terence PO Q1H PRN PRN Reason: Sore Throat Enoxaparin Sodium (Lovenox) 40 mg SC DAILY [facility] PRN Reason: Protocol Last Admin: 05/14/17 09:02 Dose: 40 mg Erythromycin (Erythocin) 1,000 mg PO ONCE ONE PRN Reason: Protocol Stop: 05/15/17 15:01 Erythromycin (Erythocin) 1,000 mg PO ONCE ONE PRN Reason: Protocol Stop: 05/15/17 14:01 Erythromycin (Erythocin) 1,000 mg PO ONCE ONE PRN Reason: Protocol Stop: 05/15/17 22:01 Hydromorphone HCl (Dilaudid) 1 mg IVP Q3 PRN PRN Reason: Pain, severe (8-10) Last Admin: 05/14/17 09:10 Dose: 1 mg Metronidazole (Flagyl 500mg/100ml Ns) 100 mls @ 100 mls/hr IVPB Q8 [facility] PRN Reason: Protocol Last Admin: 05/14/17 09:02 Dose: 100 mls/hr Piperacillin Sod/Tazobactam (Sod 3.375 gm/ Sodium Chloride) 100 mls @ 100 mls/ hr IVPB Q6 [facility] PRN Reason: Protocol Last Admin: 05/14/17 11:17 Dose: 100 mls/hr Meropenem 1 gm/ Sodium (Chloride) 100 mls @ 100 mls/hr IVPB Q8 [facility] PRN Reason: Protocol Last Admin: 05/14/17 09:02 Dose: 100 mls/hr Lorazepam (Ativan) 0.5 mg IVP Q2 PRN PRN Reason: Symptoms of alcohol withdrawl Neomycin Sulfate (Neomycin Tab) 1,000 mg PO ONCE ONE Stop: 05/15/17 15:01 Neomycin Sulfate (Neomycin Tab) 1,000 mg PO ONCE ONE Stop: 05/15/17 14:01 Neomycin Sulfate (Neomycin Tab) 1,000 mg PO ONCE ONE Stop: 05/15/17 22:01 Nicotine (Nicoderm Cq) 1 patch TD DAILY [facility] Last Admin: 05/14/17 09:03 Dose: 1 patch Ondansetron HCl (Zofran Inj) 4 mg IVP Q4 PRN PRN Reason: Nausea/Vomiting Last Admin: 05/11/17 06:26 Dose: 4 mg Pantoprazole Sodium (Protonix Inj) 40 mg IVP DAILY [facility] Last Admin: 05/14/17 09:03 Dose: 40 mg Polyethylene Glycol/Electrolytes (Golytely) 2,000 ml PO ONCE ONE Stop: 05/15/17 10:01 Potassium Chloride (K-Dur 20 Meq Er Tab) 20 meq PO Q2 [facility] Stop: 05/14/17 14:01 Last Admin: 05/14/17 12:05 Dose: 20 meq - Labs Labs: 05/13/17 05:20 05/14/17 06:20 - Constitutional Appears: No Acute Distress - Head Exam Head Exam: ATRAUMATIC, NORMAL INSPECTION, NORMOCEPHALIC - Eye Exam Eye Exam: Normal appearance - ENT Exam ENT Exam: Mucous Membranes Moist - Neck Exam Neck Exam: Normal Inspection - Respiratory Exam Respiratory Exam: Clear to Ausculation Bilateral - Cardiovascular Exam Cardiovascular Exam: REGULAR RHYTHM - GI/Abdominal Exam GI & Abdominal Exam: Soft, Tenderness (LLQ and RLQ) - Extremities Exam Extremities Exam: Full ROM, Normal Capillary Refill - Neurological Exam Neurological Exam: Alert, Awake, Oriented x3 - Psychiatric Exam Psychiatric exam: Normal Affect - Skin Skin Exam: Normal Color Assessment and Plan - Assessment and Plan (Free Text) Assessment: A/P: 51 y/o M with history of 2 previous episodes of diverticulitis within the last year, admitted for progressively worsening abdominal pain and diagnosed with recurrent diverticulitis with micro perforation. Recurrent acute diverticulitis, with microperforation -Patient afebrile today. T: 99.0. Last fever: 100.7 08:17 on 05/11/17 -WBC improving 20.6 > 17.2 > 14.8 -CT consistent with acute diverticulitis with microperforation on admission -Surgery consult appreciated who plans for possible surgical intervention due to recurrent previous episodes -ID consultation by Dr. Alford appreciated -Will continue IV antiobiotics: Zosyn 3.375gm IV Q6h (Started 05/10, Current day 4) Flagyl 500mg IV Q8h (Started 05/10, Current day 4) Meropenem 1gm IV Q8h (Started 05/11, Current day 3) -Dilaudid 1mg IV Q3h prn -Clear liquid diet per surgery and bowel prep tomorrow for [facility] surgery on Tuesday 05/16 Leukocytosis, improving -Secondary to acute diverticulitis -WBC improving 20.6 > 17.2 >14.8 -Afebrile -Blood culture x2 from 05/09, reveals no growth after 4 days -Urine culture no growth, final History of chest pain -Asymptomatic -Cardiac Cath in 2013: non obstructive CAD -Cardiology, Dr. Yeboah consulted for pre-op cardiac risk assessment -Patient is cleared for surgery by Dr. Yeboah Tobacco use disorder -Nicotine Patch for hospital course -Discussed smoking cessation Alcohol abuse -History of alcohol use 2 to 3 beers every other day -Last used alcohol 2 days prior to admission -No signs of withdrawal. Will continue to monitor -CIWA protocol -Ativan 0.5mg IV Q2h prn for symptoms of withdrawal ordered by general surgery DVT prophylaxis -Lovenox 40mg SC daily
[2017-05-14] MEDS: Lactated Ringer's 1,000 ML IV SCH (21:09)
[2017-05-15] MEDS: metroNIDAZOLE 500mg/100ml NS 100 ML IVPB SCH ×3 (00:02→16:10)
[2017-05-15] MEDS: Meropenem 1 GM in Sodium Chloride 0.9% 100 ML IVPB SCH ×3 (01:04→16:10)
[2017-05-15] MEDS: Piperacillin/Tazobact 3.375 GM in Sodium Chloride 0.9% 100 ML IVPB SCH ×4 (03:23→21:42)
--- NOTE | 2017-05-15 06:51 | CP.PCM.PN ---
Subjective - Date & Time of Evaluation Date of Evaluation: 05/15/17 Time of Evaluation: 07:15 - Subjective Subjective: Patient was seen and examined, NAD. Tolerating PO liquid diet, denies any pain at this time, ambulating, voiding freely, had a normal BM this morning. Patinet denies dizziness, SOB, chest pain, abdominal pain, urinary symptoms or muscle cramps. (bowel prep, surgery tomorrow, K+ 3.7 today) Objective - Vital Signs/Intake and Output Vital Signs (last 24 hours): Temp Pulse Resp BP Pulse Ox 97.6 F 95 H 20 147/83 97 05/15/17 00:53 05/15/17 00:53 05/15/17 00:53 05/15/17 00:53 05/15/17 00:53 - Medications Medications: Current Medications Acetaminophen (Tylenol 325mg Tab) 650 mg PO Q4 PRN PRN Reason: Fever >100.4 F Last Admin: 05/11/17 08:16 Dose: 650 mg Benzocaine/Menthol (Cepacol Sore Throat) 1 terence PO Q1H PRN PRN Reason: Sore Throat Enoxaparin Sodium (Lovenox) 40 mg SC DAILY [facility] PRN Reason: Protocol Last Admin: 05/14/17 09:02 Dose: 40 mg Erythromycin (Erythocin) 1,000 mg PO ONCE ONE PRN Reason: Protocol Stop: 05/15/17 15:01 Erythromycin (Erythocin) 1,000 mg PO ONCE ONE PRN Reason: Protocol Stop: 05/15/17 14:01 Erythromycin (Erythocin) 1,000 mg PO ONCE ONE PRN Reason: Protocol Stop: 05/15/17 22:01 Hydromorphone HCl (Dilaudid) 1 mg IVP Q3 PRN PRN Reason: Pain, severe (8-10) Last Admin: 05/15/17 06:29 Dose: 1 mg Metronidazole (Flagyl 500mg/100ml Ns) 100 mls @ 100 mls/hr IVPB Q8 [facility] PRN Reason: Protocol Last Admin: 05/15/17 00:02 Dose: 100 mls/hr Piperacillin Sod/Tazobactam (Sod 3.375 gm/ Sodium Chloride) 100 mls @ 100 mls/ hr IVPB Q6 [facility] PRN Reason: Protocol Last Admin: 05/15/17 03:23 Dose: 100 mls/hr Meropenem 1 gm/ Sodium (Chloride) 100 mls @ 100 mls/hr IVPB Q8 [facility] PRN Reason: Protocol Last Admin: 05/15/17 01:04 Dose: 100 mls/hr Lactated Ringer's (Lactated Ringer's) 1,000 mls @ 125 mls/hr IV .Q8H [facility] Last Admin: 05/14/17 21:09 Dose: 125 mls/hr Lorazepam (Ativan) 0.5 mg IVP Q2 PRN PRN Reason: Symptoms of alcohol withdrawl Neomycin Sulfate (Neomycin Tab) 1,000 mg PO ONCE ONE Stop: 05/15/17 15:01 Neomycin Sulfate (Neomycin Tab) 1,000 mg PO ONCE ONE Stop: 05/15/17 14:01 Neomycin Sulfate (Neomycin Tab) 1,000 mg PO ONCE ONE Stop: 05/15/17 22:01 Nicotine (Nicoderm Cq) 1 patch TD DAILY [facility] Last Admin: 05/14/17 09:03 Dose: 1 patch Ondansetron HCl (Zofran Inj) 4 mg IVP Q4 PRN PRN Reason: Nausea/Vomiting Last Admin: 05/11/17 06:26 Dose: 4 mg Pantoprazole Sodium (Protonix Inj) 40 mg IVP DAILY [facility] Last Admin: 05/14/17 09:03 Dose: 40 mg Polyethylene Glycol/Electrolytes (Golytely) 2,000 ml PO ONCE ONE Stop: 05/15/17 10:01 - Labs Labs: 05/13/17 05:20 05/14/17 06:20 - Constitutional Appears: No Acute Distress - Head Exam Head Exam: ATRAUMATIC, NORMAL INSPECTION, NORMOCEPHALIC - Eye Exam Eye Exam: Normal appearance Pupil Exam: NORMAL ACCOMODATION - ENT Exam ENT Exam: Mucous Membranes Moist - Neck Exam Neck Exam: Normal Inspection - Respiratory Exam Respiratory Exam: Clear to Ausculation Bilateral - Cardiovascular Exam Cardiovascular Exam: REGULAR RHYTHM - GI/Abdominal Exam GI & Abdominal Exam: Soft, Tenderness (LLQ), Normal Bowel Sounds - Extremities Exam Extremities Exam: Full ROM, Normal Capillary Refill, Normal Inspection - Back Exam Back Exam: NORMAL INSPECTION - Neurological Exam Neurological Exam: Alert, Awake, Oriented x3 - Psychiatric Exam Psychiatric exam: Normal Affect Assessment and Plan - Assessment and Plan (Free Text) Assessment: A/P: 51 y/o M with history of 2 previous episodes of diverticulitis within the last year, admitted for progressively worsening abdominal pain and diagnosed with recurrent diverticulitis with micro perforation. Recurrent acute diverticulitis, with microperforation -Patient afebrile today. T: 99.0. Last fever: 100.7 08:17 on 05/11/17 -WBC improving 20.6 > 17.2 > 14.8 -CT consistent with acute diverticulitis with microperforation on admission -Surgery consult appreciated who plans for possible surgical intervention due to recurrent previous episodes -ID consultation by Dr. Alford appreciated -Will continue IV antiobiotics: Zosyn 3.375gm IV Q6h (Started 05/10, Current day 5) Flagyl 500mg IV Q8h (Started 05/10, Current day 5) Meropenem 1gm IV Q8h (Started 05/11, Current day 4) -Dilaudid 1mg IV Q3h prn, decreased to 0.5mg today -Clear liquid diet per surgery and bowel prep today for [facility] surgery on Tuesday 05/16 Leukocytosis, improving -Secondary to acute diverticulitis -WBC improving 20.6 > 17.2 >14.8 -Afebrile -Blood culture x2 from 05/09, reveals no growth after 5 days -Urine culture no growth, final Hypokalemia - Improved - K+ 3.7 today, s/p kcl History of chest pain -Asymptomatic -Cardiac Cath in 2013: non obstructive CAD -Cardiology, Dr. Yeboah consulted for pre-op cardiac risk assessment -Patient is cleared for surgery by Dr. Yeboah Tobacco use disorder -Nicotine Patch for hospital course -Discussed smoking cessation Alcohol abuse -History of alcohol use 2 to 3 beers every other day -Last used alcohol 2 days prior to admission -No signs of withdrawal. Will continue to monitor -CIWA protocol -Ativan 0.5mg IV Q4h prn for symptoms of withdrawal ordered by general surgery Preventive care - Follow up Hep C and HIV screening DVT prophylaxis -Lovenox 40mg SC daily
[2017-05-15 07:05] LABS: BLOOD UREA NITROGEN 7 mg/dl (9-20); GFR AFRICAN-AMERICAN > 60; GFR NON-AFRICAN AMERICAN > 60
[2017-05-15 08:59] LABS: PROTHROMBIN TIME 15.4 Seconds (9.8-13.1)
[2017-05-15 09:00] LABS: INR 1.4 (0.9-1.2); PARTIAL THROMBOPLASTIN TIME 28.7 Seconds (25.6-37.1)
[2017-05-15 09:02] LABS: ALBUMIN 3.5 g/dL (3.5-5.0); ALT/SGPT 29 U/L (21-72); AST/SGOT 23 U/L (17-59); BLOOD UREA NITROGEN 7 mg/dl (9-20); CALCIUM 8.9 mg/dL (8.4-10.2); GFR AFRICAN-AMERICAN > 60; GFR NON-AFRICAN AMERICAN > 60
[2017-05-15 09:07] LABS: HEMOGLOBIN 12.3 g/dL (12.0-18.0); MEAN CELL VOLUME 89.9 fl (80.0-94.0); MEAN CORPUSCULAR HGB CONC 34.5 g/dL (33.0-37.0); RBC 3.98 Mil/uL (4.40-5.90); WHITE BLOOD COUNT 14.5 K/uL (4.8-10.8)
[2017-05-15] MEDS: Enoxaparin 40 mg Syringe SC SCH (09:36)
[2017-05-15] MEDS ORDERED: Peg-Electrolyte Oral Soln 4L (Golytely) PO ONE (10:00)
[2017-05-15] MEDS: Lactated Ringer's 1,000 ML IV SCH ×2 (12:59→14:42)
[2017-05-15] MEDS ORDERED: Erythromycin Stearat 250 mg Tab PO ONE ×4 (14:00→22:00)
--- NOTE | 2017-05-15 20:45 | CP.PCM.PN ---
Subjective - Date & Time of Evaluation Date of Evaluation: 05/15/17 Time of Evaluation: 06:45 - Subjective Subjective: General surgery: Dr Figueroa PT S&E throughout the day. Resting comfortably. Pain is minimal. Took Go Lytely prep + braun-condin today. Tolerated well with multiple BMs. Pt is clear for surgery from all specialties. All questions addressed and answered. For OR tomorrow. Objective - Vital Signs/Intake and Output Vital Signs (last 24 hours): Temp Pulse Resp BP Pulse Ox 98.9 F 92 H 20 135/89 98 05/15/17 15:50 05/15/17 15:50 05/15/17 15:50 05/15/17 15:50 05/15/17 15:50 Intake and Output: 05/15/17 05/16/17 18:59 06:59 Intake Total 2200 Output Total 250 Balance 1950 - Medications Medications: Current Medications Acetaminophen (Tylenol 325mg Tab) 650 mg PO Q4 PRN PRN Reason: Fever >100.4 F Last Admin: 05/11/17 08:16 Dose: 650 mg Benzocaine/Menthol (Cepacol Sore Throat) 1 terence PO Q1H PRN PRN Reason: Sore Throat Enoxaparin Sodium (Lovenox) 40 mg SC DAILY [facility] PRN Reason: Protocol Last Admin: 05/15/17 09:36 Dose: 40 mg Erythromycin (Erythocin) 1,000 mg PO ONCE ONE PRN Reason: Protocol Stop: 05/15/17 22:01 Hydromorphone HCl (Dilaudid) 0.5 mg IVP Q3 PRN PRN Reason: Pain, severe (8-10) Last Admin: 05/15/17 18:31 Dose: 0.5 mg Metronidazole (Flagyl 500mg/100ml Ns) 100 mls @ 100 mls/hr IVPB Q8 [facility] PRN Reason: Protocol Last Admin: 05/15/17 16:10 Dose: 100 mls/hr Piperacillin Sod/Tazobactam (Sod 3.375 gm/ Sodium Chloride) 100 mls @ 100 mls/ hr IVPB Q6 [facility] PRN Reason: Protocol Last Admin: 05/15/17 15:49 Dose: 100 mls/hr Meropenem 1 gm/ Sodium (Chloride) 100 mls @ 100 mls/hr IVPB Q8 [facility] PRN Reason: Protocol Last Admin: 05/15/17 16:10 Dose: 100 mls/hr Lactated Ringer's (Lactated Ringer's) 1,000 mls @ 125 mls/hr IV .Q8H [facility] Last Admin: 05/15/17 12:59 Dose: 125 mls/hr Lorazepam (Ativan) 0.5 mg IVP Q4 PRN PRN Reason: Symptoms of alcohol withdrawl Neomycin Sulfate (Neomycin Tab) 1,000 mg PO ONCE ONE Stop: 05/15/17 22:01 Nicotine (Nicoderm Cq) 1 patch TD DAILY [facility] Last Admin: 05/15/17 09:36 Dose: 1 patch Ondansetron HCl (Zofran Inj) 4 mg IVP Q4 PRN PRN Reason: Nausea/Vomiting Last Admin: 05/15/17 18:30 Dose: 4 mg - Labs Labs: 05/15/17 08:35 05/15/17 08:35 PT 15.4 Seconds (9.8-13.1) H 05/15/17 08:35 INR 1.4 (0.9-1.2) H 05/15/17 08:35 APTT 28.7 Seconds (25.6-37.1) 05/15/17 08:35 - Constitutional Appears: Non-toxic - Eye Exam Eye Exam: Normal appearance - ENT Exam ENT Exam: Mucous Membranes Moist - Respiratory Exam Respiratory Exam: absent: Accessory Muscle Use, Respiratory Distress - Cardiovascular Exam Cardiovascular Exam: REGULAR RHYTHM. absent: Tachycardia - GI/Abdominal Exam GI & Abdominal Exam: Soft, Tenderness (LLQ). absent: Distended, Firm, Guarding , Rigid - Extremities Exam Extremities Exam: absent: Pedal Edema - Neurological Exam Neurological Exam: Alert, Awake, Oriented x3 Assessment and Plan - Assessment and Plan (Free Text) Assessment: 51M with recurrent diverticulitis Plan: cont prep NPO @ [place] hold anticoagulation OR tomorrrow ~ 12PM d/w Dr Henry Knox, PGY3
[2017-05-16] MEDS: metroNIDAZOLE 500mg/100ml NS 100 ML IVPB SCH ×3 (00:46→17:08)
[2017-05-16] MEDS: Lactated Ringer's 1,000 ML IV SCH ×5 (01:18→20:16)
[2017-05-16] MEDS: Meropenem 1 GM in Sodium Chloride 0.9% 100 ML IVPB SCH ×3 (02:00→18:09)
[2017-05-16] MEDS: Piperacillin/Tazobact 3.375 GM in Sodium Chloride 0.9% 100 ML IVPB SCH ×4 (04:33→21:43)
--- NOTE | 2017-05-16 06:59 | CP.PCM.PN ---
Subjective - Date & Time of Evaluation Date of Evaluation: 05/16/17 Time of Evaluation: 07:30 - Subjective Subjective: Patient seen and examined this morning, NAD, sleeping comfortably. Patient reports one BM this morning, NPO, voiding freely, tolerated liquid diet yesterday, currently denies any abdominal pain and admits medications are helping him with pain. Denies N/V/D, chest pain, SOB, dizziness or urinary symptoms. Patient to go for surgery today Objective - Vital Signs/Intake and Output Vital Signs (last 24 hours): Temp Pulse Resp BP Pulse Ox 98.2 F 88 20 115/68 97 05/15/17 23:40 05/15/17 23:40 05/15/17 23:40 05/15/17 23:40 05/15/17 23:40 Intake and Output: 05/15/17 05/16/17 18:59 06:59 Intake Total 2200 Output Total 250 Balance 1950 - Medications Medications: Current Medications Acetaminophen (Tylenol 325mg Tab) 650 mg PO Q4 PRN PRN Reason: Fever >100.4 F Last Admin: 05/11/17 08:16 Dose: 650 mg Benzocaine/Menthol (Cepacol Sore Throat) 1 terence PO Q1H PRN PRN Reason: Sore Throat Enoxaparin Sodium (Lovenox) 40 mg SC DAILY [facility] PRN Reason: Protocol Last Admin: 05/15/17 09:36 Dose: 40 mg Hydromorphone HCl (Dilaudid) 0.5 mg IVP Q3 PRN PRN Reason: Pain, severe (8-10) Last Admin: 05/16/17 02:43 Dose: 0.5 mg Metronidazole (Flagyl 500mg/100ml Ns) 100 mls @ 100 mls/hr IVPB Q8 [facility] PRN Reason: Protocol Last Admin: 05/16/17 00:46 Dose: 100 mls/hr Piperacillin Sod/Tazobactam (Sod 3.375 gm/ Sodium Chloride) 100 mls @ 100 mls/ hr IVPB Q6 [facility] PRN Reason: Protocol Last Admin: 05/16/17 04:33 Dose: 100 mls/hr Meropenem 1 gm/ Sodium (Chloride) 100 mls @ 100 mls/hr IVPB Q8 [facility] PRN Reason: Protocol Last Admin: 05/16/17 02:00 Dose: 100 mls/hr Lactated Ringer's (Lactated Ringer's) 1,000 mls @ 125 mls/hr IV .Q8H [facility] Last Admin: 05/16/17 06:06 Dose: Not Given Lorazepam (Ativan) 0.5 mg IVP Q4 PRN PRN Reason: Symptoms of alcohol withdrawl Nicotine (Nicoderm Cq) 1 patch TD DAILY [facility] Last Admin: 05/15/17 09:36 Dose: 1 patch Ondansetron HCl (Zofran Inj) 4 mg IVP Q4 PRN PRN Reason: Nausea/Vomiting Last Admin: 05/16/17 02:55 Dose: 4 mg - Labs Labs: 05/15/17 08:35 05/15/17 08:35 PT 15.4 Seconds (9.8-13.1) H 05/15/17 08:35 INR 1.4 (0.9-1.2) H 05/15/17 08:35 APTT 28.7 Seconds (25.6-37.1) 05/15/17 08:35 - Constitutional Appears: No Acute Distress - Head Exam Head Exam: ATRAUMATIC - Eye Exam Eye Exam: EOMI, Normal appearance - ENT Exam ENT Exam: Mucous Membranes Moist - Neck Exam Neck Exam: Normal Inspection - Respiratory Exam Respiratory Exam: Clear to Ausculation Bilateral - Cardiovascular Exam Cardiovascular Exam: REGULAR RHYTHM - GI/Abdominal Exam GI & Abdominal Exam: Soft, Tenderness (LLQ), Normal Bowel Sounds - Extremities Exam Extremities Exam: Normal Inspection - Back Exam Back Exam: NORMAL INSPECTION - Neurological Exam Neurological Exam: Alert, Awake, Oriented x3 - Psychiatric Exam Psychiatric exam: Normal Affect - Skin Skin Exam: Intact, Normal Color Assessment and Plan - Assessment and Plan (Free Text) Assessment: A/P: 51 y/o M with history of 2 previous episodes of diverticulitis within the last year, admitted for progressively worsening abdominal pain and diagnosed with recurrent diverticulitis with micro perforation. Recurrent acute diverticulitis, with microperforation -Patient afebrile today. T: 99.0. Last fever: 100.7 08:17 on 05/11/17 -WBC improving 20.6 > 17.2 > 14.8 -CT consistent with acute diverticulitis with microperforation on admission -Surgery consult appreciated who plans for possible surgical intervention due to recurrent previous episodes -ID consultation by Dr. Alford appreciated -Will continue IV antiobiotics: Zosyn 3.375gm IV Q6h (Started 05/10, Current day 7) Flagyl 500mg IV Q8h (Started 05/10, Current day 7) Meropenem 1gm IV Q8h (Started 05/11, Current day 5) -Dilaudid 1mg IV Q3h prn, decreased to 0.5mg yesterday (controlled) -Surgery today, NPO, will follow post-op plan Leukocytosis, improving -Secondary to acute diverticulitis -WBC improving 20.6 > 17.2 >14.8 yesterday, no new labs today, will follow up -Afebrile -Blood culture x2 from 05/09, reveals no growth final -Urine culture no growth, final Hypokalemia - Improved - K+ 3.7 yesterday, s/p kcl - follow CMP History of chest pain -Asymptomatic -Cardiac Cath in 2013: non obstructive CAD -Cardiology, Dr. Yeboah consulted for pre-op cardiac risk assessment -Patient is cleared for surgery by Dr. Yeboah Tobacco use disorder -Nicotine Patch for hospital course -Discussed smoking cessation Alcohol abuse -History of alcohol use 2 to 3 beers every other day -Last used alcohol 2 days prior to admission -No signs of withdrawal. Will continue to monitor -CIWA protocol -Ativan 0.5mg IV Q4h prn for symptoms of withdrawal ordered by general surgery Preventive care - Follow up Hep C and HIV screening DVT prophylaxis -Lovenox 40mg SC daily (held today)
[2017-05-16] MEDS ORDERED: Rocuronium 10 mg/ml (5 ml) ONE ×2 (11:36→13:16)
[2017-05-16] MEDS ORDERED: Propofol 10 mg/ml Inj (20 ML) ONE (11:36)
[2017-05-16] MEDS ORDERED: Lidocaine 4% (Laryng-O-Jet) Kit MM ONE (11:36)
[2017-05-16] MEDS ORDERED: Succinylcholine 200 mg/10 ml Inj IV ONE (11:36)
[2017-05-16] MEDS ORDERED: Ketamine 50 mg/ml Inj (10 ml) ONE (11:40)
[2017-05-16] MEDS ORDERED: Bupivacaine HCl 0.25% PF (10 ml) Inj ONE (11:43)
[2017-05-16] MEDS ORDERED: Lactated Ringer's 1,000 ML IV ONE ×3 (12:09→14:00)
[2017-05-16] MEDS ORDERED: Midazolam 2 MG/2 ML VIAL ONE (12:11)
[2017-05-16] MEDS ORDERED: Dexamethasone 4 mg/1 ml ONE (13:02)
[2017-05-16] MEDS ORDERED: Desflurane Inhalation Anesthetic Liq (240 ml) ONE (14:13)
--- NOTE | 2017-05-16 15:06 | PCM.SURG1 ---
Surgeon's Initial Post Op Note - Surgeon's Notes Surgeon: Dr Figueroa Weed Control Inspector: Dr Knox PGY3, Dr Hunt PGY2 Type of Anesthesia: General Endo Pre-Operative Diagnosis: recurrent diverticulitis Operative Findings: see report Post-Operative Diagnosis: as above Operation Performed: laparotomy. lysis of adhesions. mobilization of descending colon. sigmoidectomy. primary anastamosis via EEA 29 Specimen/Specimens Removed: frozen section colon mass. sigmoid colon w/ mass. proximal staple line. EEA anastamosis margins Estimated Blood Loss: EBL {In ML}: 200 Blood Products Given: N/A Drains Used: Anil Post-Op Condition: Good Date of Surgery/Procedure: 05/16/17 Time of Surgery/Procedure: 15:06
[2017-05-16] MEDS ORDERED: HYDROmorphone 0.5 mg/0.5 ml ISec IVP PRN (15:25)
--- NOTE | 2017-05-16 15:35 | PCM.ANESB5 ---
Transverse Abdominis Block - Transverse Abdominis Plane Date of Procedure: 05/16/17 Anesthesiologist: Susu Pre-Procedure Diagnosis: Diverticulitis Post-Procedure Diagnosis: Same Procedure Performed: Transverse Abdominis Plane Nerve Block Left, Transverse Abdominis Plane Nerve Block Right - Procedure Transverse Abdominis Plane Nerve Block: The procedure was explained to the patient that it is for post-operative pain management and would be performed after surgery. Consent was obtained prior to surgery after a thorough discussion with the patient regarding the benefits and possible complications of transverse abdominis plane block. After the surgery had concluded and before the patient emerged from general anesthesia, time-out was held with the circulating nurse to re-confirm the appropriate block. With the patient in supine position, the ultrasound probe was placed transverse to the abdominal wall at the mid-axillary line above the iliac crest of the appropriate side. The skin, subcutaneous tissue, fat, external oblique muscle, internal oblique muscle, and the transverse abdominis muscle were identified. The general area of the block site was then prepped with Chloraprep. At this point, a # 21-gauge Stimuplex 4-inch needle was inserted posterior to and in plane with the ultrasound probe and directed anteriorly. Needle was advanced under direct ultrasound visualization until it reached the plane between the internal oblique and transverse abdominis muscles. After appropriate placement, 2mL of local anesthetic solution was injected. When the transverse abdominis plane was observed expanding in an ellipsoid way, the rest of the solution was slowly injected. A total of ___30___ mL of _0.25____ % __ Bupivicaine with 1:200,000 epinephrine was used for this block. The needle was then removed and sterile dressing was applied. Similarly, the same procedure was performed on the other side using the same medications. The patient had stable vital signs throughout and had no untoward complications after emergence from general anesthesia in the recovery room.
[2017-05-17] MEDS: Meropenem 1 GM in Sodium Chloride 0.9% 100 ML IVPB SCH ×3 (00:13→16:00)
[2017-05-17] MEDS ORDERED: DiphenhydrAMINE 50 mg/ml Inj IVP STA ×2 (00:22→00:44)
[2017-05-17] MEDS: metroNIDAZOLE 500mg/100ml NS 100 ML IVPB SCH ×3 (01:12→15:59)
[2017-05-17] MEDS: Piperacillin/Tazobact 3.375 GM in Sodium Chloride 0.9% 100 ML IVPB SCH ×4 (03:54→22:38)
[2017-05-17] MEDS: Lactated Ringer's 1,000 ML IV SCH ×5 (05:09→20:37)
[2017-05-17 07:21] LABS: BASO % 0.2 % (0.0-2.0); EOS % 0.1 % (0.0-4.0); HEMOGLOBIN 10.1 g/dL (12.0-18.0); LYMPH # 1.6 K/uL (1.0-4.3); LYMPH % 8.7 % (20.0-40.0); MEAN CELL VOLUME 90.3 fl (80.0-94.0); MEAN CORPUSCULAR HGB CONC 33.3 g/dL (33.0-37.0); MEAN PLATELET VOLUME 6.7 fl (7.2-11.7); MONO # 2.5 K/uL (0.0-0.8); MONO % 13.4 % (0.0-10.0); NEUT # 14.4 K/uL (1.8-7.0); NEUT % 77.6 % (50.0-75.0); PLATELET COUNT 362 K/uL (130-400); RBC 3.37 Mil/uL (4.40-5.90); RED CELL DISTRIBUTION WIDTH 13.2 % (11.5-14.5); WHITE BLOOD COUNT 18.6 K/uL (4.8-10.8)
[2017-05-17 07:42] LABS: ALBUMIN 2.8 g/dL (3.5-5.0); ALT/SGPT 31 U/L (21-72); AST/SGOT 21 U/L (17-59); BLOOD UREA NITROGEN 10 mg/dl (9-20); CALCIUM 8.4 mg/dL (8.4-10.2); GFR AFRICAN-AMERICAN > 60; GFR NON-AFRICAN AMERICAN > 60
--- NOTE | 2017-05-17 08:38 | CP.PCM.PN ---
Subjective - Date & Time of Evaluation Date of Evaluation: 05/17/17 Time of Evaluation: 08:36 - Subjective Subjective: SURGERY PROGRESS NOTE FOR DR. NEGRON 51M seen and examined at bedside. States pain is controlled. Denies Nausea, vomiting, fevers, chills. Also denies flatus and bowel movements. Objective - Vital Signs/Intake and Output Vital Signs (last 24 hours): Temp Pulse Resp BP Pulse Ox 97.8 F 79 19 131/74 96 05/17/17 07:46 05/17/17 07:46 05/17/17 07:46 05/17/17 07:46 05/17/17 07:46 Intake and Output: 05/17/17 05/17/17 06:59 18:59 Intake Total 350 Output Total 260 Balance 90 - Medications Medications: Current Medications Acetaminophen (Tylenol 325mg Tab) 650 mg PO Q4 PRN PRN Reason: Fever >100.4 F Last Admin: 05/11/17 08:16 Dose: 650 mg Benzocaine/Menthol (Cepacol Sore Throat) 1 terence PO Q1H PRN PRN Reason: Sore Throat Enoxaparin Sodium (Lovenox) 40 mg SC DAILY [facility] PRN Reason: Protocol Last Admin: 05/15/17 09:36 Dose: 40 mg Hydromorphone HCl (Dilaudid 0.2 Mg/Ml Dog Handler Or Trainer) 6 mg IV CONT PRN; Protocol PRN Reason: Pain, Mild (1-3) Last Admin: 05/16/17 16:35 Dose: 6 mg Metronidazole (Flagyl 500mg/100ml Ns) 100 mls @ 100 mls/hr IVPB Q8 [facility] PRN Reason: Protocol Last Admin: 05/17/17 01:12 Dose: 100 mls/hr Piperacillin Sod/Tazobactam (Sod 3.375 gm/ Sodium Chloride) 100 mls @ 100 mls/ hr IVPB Q6 [facility] PRN Reason: Protocol Last Admin: 05/17/17 03:54 Dose: 100 mls/hr Meropenem 1 gm/ Sodium (Chloride) 100 mls @ 100 mls/hr IVPB Q8 [facility] PRN Reason: Protocol Last Admin: 05/17/17 00:13 Dose: 100 mls/hr Lactated Ringer's (Lactated Ringer's) 1,000 mls @ 125 mls/hr IV .Q8H [facility] Last Admin: 05/17/17 06:06 Dose: Not Given Lactated Ringer's (Lactated Ringer's) 1,000 mls @ 150 mls/hr IV .Q6H40M [facility] Last Admin: 05/17/17 05:09 Dose: Not Given Lorazepam (Ativan) 0.5 mg IVP Q4 PRN PRN Reason: Symptoms of alcohol withdrawl Nicotine (Nicoderm Cq) 1 patch TD DAILY [facility] Last Admin: 05/16/17 08:22 Dose: 1 patch Ondansetron HCl (Zofran Inj) 4 mg IVP Q4 PRN PRN Reason: Nausea/Vomiting Last Admin: 05/16/17 02:55 Dose: 4 mg - Labs Labs: 05/17/17 07:15 05/17/17 07:15 PT 15.4 Seconds (9.8-13.1) H 05/15/17 08:35 INR 1.4 (0.9-1.2) H 05/15/17 08:35 APTT 28.7 Seconds (25.6-37.1) 05/15/17 08:35 - Constitutional Appears: Well, Non-toxic, No Acute Distress - Head Exam Head Exam: ATRAUMATIC - Eye Exam Eye Exam: EOMI, Normal appearance - ENT Exam ENT Exam: Mucous Membranes Moist - Respiratory Exam Respiratory Exam: Clear to Ausculation Bilateral Additional comments: 1000ml on Incentive spirometer - Cardiovascular Exam Cardiovascular Exam: REGULAR RHYTHM, +S1, +S2 - GI/Abdominal Exam GI & Abdominal Exam: Soft, Tenderness (appropriately tender). absent: Distended , Firm, Guarding, Rigid Additional comments: dressings clean dry and intact YADIEL 20cc serosanguinous - Neurological Exam Neurological Exam: Alert, Awake, Oriented x3 - Skin Skin Exam: Dry, Normal Color, Warm Assessment and Plan - Assessment and Plan (Free Text) Assessment: 51M s/p open sigmoidectomy with primary anastomosis via EEA POD#1 for microperforated diverticulitis Plan: - Start Clear liquids - DC Flanagan, trial of void - DC HORTICULTURALIST, switch to PRN pain control - Monitor abdominal drain output Further recs discuss with Dr Henry Johnson, PGY2
[2017-05-17] MEDS: Enoxaparin 40 mg Syringe SC SCH (08:56)
--- NOTE | 2017-05-17 09:14 | CP.PCM.PN ---
Subjective - Date & Time of Evaluation Date of Evaluation: 05/17/17 Time of Evaluation: 09:10 - Subjective Subjective: 51 year old male seen at bedside one day s/p open sigmoidectomy with primary anastomosis via EEA secondary to divreticulitis with microperforations. Patient is AAO x 3 and NAD resting comfortably at bedside at time of examination. Denies any acute overnight events. States that pain is well controlled with DEVELOPMENTAL ELECTRONICS ASSEMBLER pump at 4/10 today. Denies any recent N/V/F/C/CP/SOB/D/posterior calf pain when squeezed. Denies any flatus or bowel movements. Objective - Vital Signs/Intake and Output Vital Signs (last 24 hours): Temp Pulse Resp BP Pulse Ox 97.8 F 79 19 131/74 96 05/17/17 07:46 05/17/17 07:46 05/17/17 07:46 05/17/17 07:46 05/17/17 07:46 Intake and Output: 05/17/17 05/17/17 06:59 18:59 Intake Total 350 Output Total 260 Balance 90 - Medications Medications: Current Medications Acetaminophen (Tylenol 325mg Tab) 650 mg PO Q4 PRN PRN Reason: Fever >100.4 F Last Admin: 05/11/17 08:16 Dose: 650 mg Benzocaine/Menthol (Cepacol Sore Throat) 1 terence PO Q1H PRN PRN Reason: Sore Throat Enoxaparin Sodium (Lovenox) 40 mg SC DAILY [facility] PRN Reason: Protocol Last Admin: 05/17/17 08:56 Dose: 40 mg Hydromorphone HCl (Dilaudid 0.2 Mg/Ml Scuba Dive Training Instructor) 6 mg IV CONT PRN; Protocol PRN Reason: Pain, Mild (1-3) Last Admin: 05/16/17 16:35 Dose: 6 mg Metronidazole (Flagyl 500mg/100ml Ns) 100 mls @ 100 mls/hr IVPB Q8 [facility] PRN Reason: Protocol Last Admin: 05/17/17 08:54 Dose: 100 mls/hr Piperacillin Sod/Tazobactam (Sod 3.375 gm/ Sodium Chloride) 100 mls @ 100 mls/ hr IVPB Q6 [facility] PRN Reason: Protocol Last Admin: 05/17/17 09:01 Dose: 100 mls/hr Meropenem 1 gm/ Sodium (Chloride) 100 mls @ 100 mls/hr IVPB Q8 [facility] PRN Reason: Protocol Last Admin: 05/17/17 08:55 Dose: 100 mls/hr Lactated Ringer's (Lactated Ringer's) 1,000 mls @ 125 mls/hr IV .Q8H [facility] Last Admin: 05/17/17 06:06 Dose: Not Given Lactated Ringer's (Lactated Ringer's) 1,000 mls @ 150 mls/hr IV .Q6H40M [facility] Last Admin: 05/17/17 05:09 Dose: Not Given Lorazepam (Ativan) 0.5 mg IVP Q4 PRN PRN Reason: Symptoms of alcohol withdrawl Nicotine (Nicoderm Cq) 1 patch TD DAILY [facility] Last Admin: 05/17/17 08:55 Dose: 1 patch Ondansetron HCl (Zofran Inj) 4 mg IVP Q4 PRN PRN Reason: Nausea/Vomiting Last Admin: 05/16/17 02:55 Dose: 4 mg - Labs Labs: 05/17/17 07:15 05/17/17 07:15 PT 15.4 Seconds (9.8-13.1) H 05/15/17 08:35 INR 1.4 (0.9-1.2) H 05/15/17 08:35 APTT 28.7 Seconds (25.6-37.1) 05/15/17 08:35 - Constitutional Appears: Well, Non-toxic, No Acute Distress - Head Exam Head Exam: ATRAUMATIC, NORMOCEPHALIC - Eye Exam Eye Exam: Normal appearance Pupil Exam: NORMAL ACCOMODATION - ENT Exam ENT Exam: Normal Exam - Neck Exam Neck Exam: Full ROM, Normal Inspection - Respiratory Exam Respiratory Exam: NORMAL BREATHING PATTERN - GI/Abdominal Exam GI & Abdominal Exam: absent: Distended, Firm, Guarding - Rectal Exam Rectal Exam: Deferred - Extremities Exam Extremities Exam: Normal Inspection - Back Exam Back Exam: NORMAL INSPECTION - Neurological Exam Neurological Exam: Alert, Awake, Oriented x3 Assessment and Plan - Assessment and Plan (Free Text) Assessment: 51 year old male one day s/p partial sigmoidectomy with Dr. Figueroa secondary to Diverticulitis with microperforation Plan: Recurrent acute diverticulitis, with microperforation - One day s/p partial sigmoidectomy by Dr. Figueroa - Minimal serous abdominal drainage noted in drain - WBC 18.6 from 14.5 most likely secondary to post surgical state - Afebrile - Blood culture x2 from 05/09, reveals no growth after 5 days - Urine culture no growth, final - Patient afebrile today. T: 97.8F. Last fever: 100.7 08:17 on 05/11/17 - Dilaudid 1 mg IV q4 prn for severe pain ordered by General Surgery - Will continue IV antiobiotics per ID: Zosyn 3.375gm IV Q6h (Started 05/10, Current day 8) Flagyl 500mg IV Q8h (Started 05/10, Current day 8) Meropenem 1gm IV Q8h (Started 05/11, Current day 7) - Liquid diet per General Surgery - DC angel catheter, patient has voided 250 mL - PT eval and treat ordered Anemia - H/H 10.1/30.4 - Type and screen complete - 2 units PRBC ordered and ready Hypokalemia - Improved, 3.7 today Hypotension - BP 97/67 - Patient became dizzy upon standing - 1 L NS bolus given, repeat BP 102/61 History of chest pain -Asymptomatic -Cardiac Cath in 2013: non obstructive CAD Tobacco use disorder -Nicotine Patch for hospital course -Discussed smoking cessation Alcohol abuse -History of alcohol use 2 to 3 beers every other day -Last used alcohol 2 days prior to admission -No signs of withdrawal. Will continue to monitor -CIWA protocol -Ativan 0.5mg IV Q4h prn for symptoms of withdrawal ordered by general surgery Preventive care - Hepatits C antibody: negative - HIV 1&2 antibody screen: negative DVT prophylaxis - Lovenox 40mg SC daily - Encouraged incentive spirometry
[2017-05-17] MEDS: HYDROmorphone 0.5 mg/0.5 ml ISec IVP PRN ×3 (10:41→20:24)
[2017-05-17 11:17] LABS: LYMPHOCYTE 4 % (20-50); MONOCYTE 13 % (0-10); NEUTROPHIL 82 % (42-75); PLATELET ESTIMATE NORMAL (NORMAL); REACTIVE LYMPHOCYTES 1 % (0-0); TOTAL CELLS COUNTED 100
[2017-05-17 11:19] LABS: HYPOCHROMIC SLIGHT
--- NOTE | 2017-05-17 14:34 | OP ---
PROCEDURE DATE: 05/16/2017 SURGEON: Shraddha Figueroa MD ASSISTANTS: Dr. Nesbitt and Dr. Hunt. ANESTHESIA: General, Dr. Cristobal. PREOPERATIVE DIAGNOSES: Recurrent diverticulitis with chronic abscess. POSTOPERATIVE DIAGNOSES: Recurrent diverticulitis with chronic abscess. PROCEDURE: Sigmoid colon resection with anastomosis. DESCRIPTION OF OPERATION: With the patient in lithotomy thin stirrups under adequate general anesthesia, a Flanagan catheter was inserted. The abdomen and perineum were prepped and draped in the usual sterile manner. A midline incision was made just above the umbilicus, taken down through the subcutaneous tissue and the peritoneum was entered in the midline. Exploration upon entering the abdomen revealed a single loop of small bowel. which was firmly adherent to a suprapubic mass and examination of the bowel noted that this loop was very close to the terminal ileum with some thickening inflammatory change extending up to 2 inches from the ileocecal valve. The mass was otherwise localized and partially adherent mostly to the right pelvic sidewall with the left side and pelvis as well as the proximal sigmoid relatively well-preserved with minimal inflammatory changes. No significant diverticulum cyst was noted involving the remainder of the sigmoid colon. The patient was placed in Trendelenburg with the remainder of the small bowel packed into the upper abdomen and the adherent loop of distal ileum was dissected off the diverticular mass. A small abscess cavity was entered with drainage of a small amount of purulent material and the small bowel made up the anterior wall of the abscess cavity. This was completely taken off and a frozen section of some of the abscess wall tissue close to the colon was sent for frozen section to confirm that this was not in fact a malignant perforation. Frozen section returned only normal colonic mucosa and chronic inflammation, though the small bowel loop was completely freed from the sigmoid colon at this point. The small bowel wall appeared mildly thickened and inflamed in this area, but there did not appear to be any small bowel stricture and the small bowel was packed upward with the remainder of the small bowel. At this point, the left gutter was developed incising along the white line to mobilize the sigmoid medially and continued up towards the left colon. The left ureter was identified and positioned well lateral to the area of surgery and followed down into the entrance to the pelvis. There was noted to be a significant length of rectum distal to the area of the inflammation and the rectum was then divided just below the mass using a TA 60 stapler. The right side of the mesorectum was then carefully dissected using a combination of cautery and sharp dissection and LigaSure with larger vessels being clamped, divided and ligated with 3-0 Vicryl ties. The sigmoid was divided also with the TA stapler proximal to the area of the inflammatory mass and the mass was removed. It was noted to contain approximately 6 inches of colon and the lumen of the colon was again palpated and no evidence of mucosal tumor was identified. After the mass was being resected, it was noted that the proximal sigmoid would easily reach the distal rectum with no tension to allow an EEA anastomosis. The proximal sigmoid was tested with the EEA dilators and the 25 and 29 mm dilators passed. The 33-mm dilator did not pass and decision was made to performing anastomosis with the 29 mm EEA. The distal rectum was then dilated also with all three dilators up to 33 and the 29 mm EEA was passed into the rectum and the spike was then exposed anterior to the staple line along the anterior edge of the rectum. The pursestring of 3-0 Prolene was placed around the anvil within the sigmoid and superiorly tied and the sigmoid was then brought down to fix to the EEA. The EEA was closed and fired and opened according to directions and the EEA was removed, two complete donuts of tissue were identified. The anastomosis was inspected visually and then after filling the pelvis with warm saline, air was instilled via the rectum and no leakage was identified. The overall surfaces were examined for hemostasis and a 19-Jama[place] Anil drain was positioned primarily in the right side of the pelvis adjacent to the area of the abscess and the terminal ileum brought out through a right-sided stab wound. All lap pads were removed and counted and closure was performed with running fascial suture of double-stranded #1 PDS. The skin was closed with latricia. A dry sterile dressing was applied. The patient tolerated the procedure well and transferred to recovery room in stable condition. Estimated blood loss for the procedure was 200 mL. Shraddha Figueroa MD
[2017-05-17] MEDS ORDERED: Lactated Ringer's 1,000 ML IV SCH (15:00)
--- NOTE | 2017-05-17 18:46 | CP.PCM.PN ---
Subjective - Date & Time of Evaluation Date of Evaluation: 05/17/17 Time of Evaluation: 18:43 - Subjective Subjective: I D NOTE HAD COLON RESECTION CONTINUE SAME ANTIBIOTIC COVERAGE Objective - Vital Signs/Intake and Output Vital Signs (last 24 hours): Temp Pulse Resp BP Pulse Ox 98.9 F 82 20 105/66 96 05/17/17 16:25 05/17/17 16:25 05/17/17 16:25 05/17/17 16:25 05/17/17 16:25 Intake and Output: 05/17/17 05/17/17 06:59 18:59 Intake Total 350 Output Total 260 250 Balance 90 -250 - Medications Medications: Current Medications Acetaminophen (Tylenol 325mg Tab) 650 mg PO Q4 PRN PRN Reason: Fever >100.4 F Last Admin: 05/11/17 08:16 Dose: 650 mg Benzocaine/Menthol (Cepacol Sore Throat) 1 terence PO Q1H PRN PRN Reason: Sore Throat Enoxaparin Sodium (Lovenox) 40 mg SC DAILY [facility] PRN Reason: Protocol Last Admin: 05/17/17 08:56 Dose: 40 mg Hydromorphone HCl (Dilaudid) 1 mg IVP Q4 PRN PRN Reason: Pain, severe (8-10) Last Admin: 05/17/17 16:32 Dose: 1 mg Metronidazole (Flagyl 500mg/100ml Ns) 100 mls @ 100 mls/hr IVPB Q8 [facility] PRN Reason: Protocol Last Admin: 05/17/17 15:59 Dose: 100 mls/hr Piperacillin Sod/Tazobactam (Sod 3.375 gm/ Sodium Chloride) 100 mls @ 100 mls/ hr IVPB Q6 [facility] PRN Reason: Protocol Last Admin: 05/17/17 16:00 Dose: 100 mls/hr Meropenem 1 gm/ Sodium (Chloride) 100 mls @ 100 mls/hr IVPB Q8 [facility] PRN Reason: Protocol Last Admin: 05/17/17 16:00 Dose: 100 mls/hr Lactated Ringer's (Lactated Ringer's) 1,000 mls @ 150 mls/hr IV .Q6H40M [facility] Last Admin: 05/17/17 18:21 Dose: Not Given Lorazepam (Ativan) 0.5 mg IVP Q4 PRN PRN Reason: Symptoms of alcohol withdrawl Nicotine (Nicoderm Cq) 1 patch TD DAILY [facility] Last Admin: 05/17/17 08:55 Dose: 1 patch Ondansetron HCl (Zofran Inj) 4 mg IVP Q4 PRN PRN Reason: Nausea/Vomiting Last Admin: 05/16/17 02:55 Dose: 4 mg - Labs Labs: 05/17/17 07:15 05/17/17 07:15 PT 15.4 Seconds (9.8-13.1) H 05/15/17 08:35 INR 1.4 (0.9-1.2) H 05/15/17 08:35 APTT 28.7 Seconds (25.6-37.1) 05/15/17 08:35
[2017-05-18] MEDS: Meropenem 1 GM in Sodium Chloride 0.9% 100 ML IVPB SCH ×3 (00:43→17:10)
[2017-05-18] MEDS: metroNIDAZOLE 500mg/100ml NS 100 ML IVPB SCH ×3 (00:43→17:10)
[2017-05-18] MEDS: HYDROmorphone 0.5 mg/0.5 ml ISec IVP PRN ×3 (00:48→08:14)
[2017-05-18] MEDS: Lactated Ringer's 1,000 ML IV SCH (00:50)
[2017-05-18] MEDS: Piperacillin/Tazobact 3.375 GM in Sodium Chloride 0.9% 100 ML IVPB SCH ×4 (04:24→21:14)
[2017-05-18 06:37] LABS: HEMOGLOBIN 9.1 g/dL (12.0-18.0); MEAN CELL VOLUME 90.5 fl (80.0-94.0); MEAN CORPUSCULAR HGB CONC 33.1 g/dL (33.0-37.0); RBC 3.03 Mil/uL (4.40-5.90); RED CELL DISTRIBUTION WIDTH 13.3 % (11.5-14.5); WHITE BLOOD COUNT 13.3 K/uL (4.8-10.8)
[2017-05-18 06:49] LABS: BLOOD UREA NITROGEN 9 mg/dl (9-20); CALCIUM 8.5 mg/dL (8.4-10.2); GFR AFRICAN-AMERICAN > 60; GFR NON-AFRICAN AMERICAN > 60
--- NOTE | 2017-05-18 08:06 | CP.PCM.PN ---
Subjective - Date & Time of Evaluation Date of Evaluation: 05/18/17 Time of Evaluation: 08:02 - Subjective Subjective: 51 year old male seen at bedside one day s/p open sigmoidectomy with primary anastomosis via EEA secondary to diverticulitis with microperforations. Patient is AAO x 3 and NAD resting comfortably at bedside at time of examination. Denies any acute overnight events. States that pain is well controlled with medication, improved from yesterday. Denies any recent dizziness since his single dizzy spell yesterday. States that he has been urinating regularly and without difficulty. Denies any BM but has had flatus. Denies any recent N/V/F/C/ CP/SOB/D/posterior calf pain when squeezed. Objective - Vital Signs/Intake and Output Vital Signs (last 24 hours): Temp Pulse Resp BP Pulse Ox 98.6 F 81 20 131/74 96 05/18/17 04:00 05/18/17 04:00 05/18/17 04:00 05/18/17 04:00 05/18/17 04:00 - Medications Medications: Current Medications Acetaminophen (Tylenol 325mg Tab) 650 mg PO Q4 PRN PRN Reason: Fever >100.4 F Last Admin: 05/11/17 08:16 Dose: 650 mg Benzocaine/Menthol (Cepacol Sore Throat) 1 terence PO Q1H PRN PRN Reason: Sore Throat Enoxaparin Sodium (Lovenox) 40 mg SC DAILY [facility] PRN Reason: Protocol Last Admin: 05/17/17 08:56 Dose: 40 mg Hydromorphone HCl (Dilaudid) 1 mg IVP Q4 PRN PRN Reason: Pain, severe (8-10) Last Admin: 05/18/17 04:49 Dose: 1 mg Metronidazole (Flagyl 500mg/100ml Ns) 100 mls @ 100 mls/hr IVPB Q8 [facility] PRN Reason: Protocol Last Admin: 05/18/17 00:43 Dose: 100 mls/hr Piperacillin Sod/Tazobactam (Sod 3.375 gm/ Sodium Chloride) 100 mls @ 100 mls/ hr IVPB Q6 [facility] PRN Reason: Protocol Last Admin: 05/18/17 04:24 Dose: 100 mls/hr Meropenem 1 gm/ Sodium (Chloride) 100 mls @ 100 mls/hr IVPB Q8 [facility] PRN Reason: Protocol Last Admin: 05/18/17 00:43 Dose: 100 mls/hr Lactated Ringer's (Lactated Ringer's) 1,000 mls @ 150 mls/hr IV .Q6H40M [facility] Last Admin: 05/18/17 00:50 Dose: Not Given Lorazepam (Ativan) 0.5 mg IVP Q4 PRN PRN Reason: Symptoms of alcohol withdrawl Nicotine (Nicoderm Cq) 1 patch TD DAILY [facility] Last Admin: 05/17/17 08:55 Dose: 1 patch Ondansetron HCl (Zofran Inj) 4 mg IVP Q4 PRN PRN Reason: Nausea/Vomiting Last Admin: 05/16/17 02:55 Dose: 4 mg - Labs Labs: 05/18/17 06:20 05/18/17 06:20 PT 15.4 Seconds (9.8-13.1) H 05/15/17 08:35 INR 1.4 (0.9-1.2) H 05/15/17 08:35 APTT 28.7 Seconds (25.6-37.1) 05/15/17 08:35 - Constitutional Appears: Well, Non-toxic, No Acute Distress - Head Exam Head Exam: ATRAUMATIC, NORMOCEPHALIC - Eye Exam Eye Exam: Normal appearance Pupil Exam: NORMAL ACCOMODATION - ENT Exam ENT Exam: Normal Exam - Neck Exam Neck Exam: Full ROM, Normal Inspection - Respiratory Exam Respiratory Exam: NORMAL BREATHING PATTERN - GI/Abdominal Exam GI & Abdominal Exam: Tenderness. absent: Firm, Guarding, Rigid - Rectal Exam Rectal Exam: absent: Deferred - Extremities Exam Extremities Exam: Normal Capillary Refill, Normal Inspection - Neurological Exam Neurological Exam: Alert, Awake, Oriented x3 - Psychiatric Exam Psychiatric exam: Normal Affect, Normal Mood Assessment and Plan - Assessment and Plan (Free Text) Assessment: 51 year old male two days s/p partial sigmoidectomy with Dr. Figueroa (DOS: ) secondary to Diverticulitis with microperforation Plan: Recurrent acute diverticulitis, with microperforation - Two days s/p partial sigmoidectomy by Dr. Figueroa - Per nursing, 20 mL serous abdominal drainage noted in drain - Afebrile - Pt voiding regularly, 250 mL total overnight - Glycerin suppository ordered to expedite BM - Dilaudid 1 mg IV q4 prn for severe pain - Will continue IV antiobiotics per Dr. Carey: Zosyn 3.375gm IV Q6h (Started 05/10, Current day 9) Flagyl 500mg IV Q8h (Started 05/10, Current day 9) Meropenem 1gm IV Q8h (Started 05/11, Current day 8) - WBC 13.3 from 18.6 yesterday - Blood culture x2 from 05/09, reveals no growth after 5 days - Urine culture no growth, final - Liquid diet per General Surgery - Continue PT Anemia - H/H 9.1/27.5 from 10.1/30.4 yesterday - Type and screen complete - 2 units PRBC ordered and ready - F/u CBC in AM Hypokalemia - K+ 3.4 - 40 mEq K+ ordered - F/u BMP in AM Hypotension - BP stabilized to baseline overnight - Continue LR's 1000 mL @ 150 mL/hr History of chest pain -Asymptomatic -Cardiac Cath in 2013: non obstructive CAD Tobacco use disorder -Nicotine Patch for hospital course -Discussed smoking cessation Alcohol abuse -History of alcohol use 2 to 3 beers every other day -Last used alcohol 2 days prior to admission -No signs of withdrawal. Will continue to monitor -CIWA protocol -Ativan 0.5mg IV Q4h prn for symptoms of withdrawal ordered by general surgery Preventive care - Hepatits C antibody: negative - HIV 1&2 antibody screen: negative DVT prophylaxis - Lovenox 40mg SC daily - Encouraged incentive spirometry - SCDs
--- NOTE | 2017-05-18 10:21 | CP.PCM.PN ---
Subjective - Date & Time of Evaluation Date of Evaluation: 05/18/17 Time of Evaluation: 08:00 - Subjective Subjective: GENERAL SURGERY NOTE FOR DR. NEGRON 51M seen and examined at bedside. Patient doing much better. States pain is controlled, denies N/V/F/C. Tolerating liquid diet. States he feels the urge but has no passed gas yet. Objective - Vital Signs/Intake and Output Vital Signs (last 24 hours): Temp Pulse Resp BP Pulse Ox 98.5 F 93 H 17 153/88 H 94 L 05/18/17 08:18 05/18/17 08:18 05/18/17 08:18 05/18/17 08:18 05/18/17 08:18 Intake and Output: 05/18/17 05/18/17 06:59 18:59 Intake Total 1900 Output Total 1505 Balance 395 - Medications Medications: Current Medications Acetaminophen (Tylenol 325mg Tab) 650 mg PO Q4 PRN PRN Reason: Pain, moderate (4-7) Benzocaine/Menthol (Cepacol Sore Throat) 1 terence PO Q1H PRN PRN Reason: Sore Throat Enoxaparin Sodium (Lovenox) 40 mg SC DAILY [facility] PRN Reason: Protocol Last Admin: 05/17/17 08:56 Dose: 40 mg Metronidazole (Flagyl 500mg/100ml Ns) 100 mls @ 100 mls/hr IVPB Q8 [facility] PRN Reason: Protocol Last Admin: 05/18/17 00:43 Dose: 100 mls/hr Piperacillin Sod/Tazobactam (Sod 3.375 gm/ Sodium Chloride) 100 mls @ 100 mls/ hr IVPB Q6 [facility] PRN Reason: Protocol Last Admin: 05/18/17 04:24 Dose: 100 mls/hr Meropenem 1 gm/ Sodium (Chloride) 100 mls @ 100 mls/hr IVPB Q8 [facility] PRN Reason: Protocol Last Admin: 05/18/17 00:43 Dose: 100 mls/hr Lactated Ringer's (Lactated Ringer's) 1,000 mls @ 150 mls/hr IV .Q6H40M [facility] Last Admin: 05/18/17 00:50 Dose: Not Given Lorazepam (Ativan) 0.5 mg IVP Q4 PRN PRN Reason: Symptoms of alcohol withdrawl Nicotine (Nicoderm Cq) 1 patch TD DAILY [facility] Last Admin: 05/17/17 08:55 Dose: 1 patch Ondansetron HCl (Zofran Inj) 4 mg IVP Q4 PRN PRN Reason: Nausea/Vomiting Last Admin: 05/16/17 02:55 Dose: 4 mg Potassium Chloride (K-Dur 20 Meq Er Tab) 40 meq PO DAILY [facility] - Labs Labs: 05/18/17 06:20 05/18/17 06:20 PT 15.4 Seconds (9.8-13.1) H 05/15/17 08:35 INR 1.4 (0.9-1.2) H 05/15/17 08:35 APTT 28.7 Seconds (25.6-37.1) 05/15/17 08:35 - Constitutional Appears: Well, Non-toxic, No Acute Distress - Head Exam Head Exam: ATRAUMATIC - Respiratory Exam Respiratory Exam: Clear to Ausculation Bilateral, NORMAL BREATHING PATTERN - Cardiovascular Exam Cardiovascular Exam: REGULAR RHYTHM, +S1, +S2 - GI/Abdominal Exam GI & Abdominal Exam: Soft. absent: Distended, Firm, Guarding, Rigid, Tenderness , Rebound Additional comments: YADIEL drain minimal output- serosanguinous Incisions clean dry intact - Neurological Exam Neurological Exam: Alert, Awake, Oriented x3 - Psychiatric Exam Psychiatric exam: Normal Affect, Normal Mood Assessment and Plan - Assessment and Plan (Free Text) Assessment: 51M s/p sigmoidectomy with anastomosis POD#2 Plan: Pain control Await bowel function DC Abx 3/2 Monitor labs Monitor YADIEL drain output Advance diet as tolerated Discussed with Dr Henry Johnson, PGY2
[2017-05-18] MEDS: Enoxaparin 40 mg Syringe SC SCH (10:32)
[2017-05-18] MEDS: Potassium Chloride 20 mEq ER Tab PO SCH (10:56)
[2017-05-18] MEDS ORDERED: Chlorhexidine Gluconate 1 APPL/PKT TP ONE (17:25)
[2017-05-19] MEDS: metroNIDAZOLE 500mg/100ml NS 100 ML IVPB SCH (00:22)
[2017-05-19] MEDS: Meropenem 1 GM in Sodium Chloride 0.9% 100 ML IVPB SCH (00:23)
[2017-05-19] MEDS: Piperacillin/Tazobact 3.375 GM in Sodium Chloride 0.9% 100 ML IVPB SCH (04:47)
--- NOTE | 2017-05-19 06:00 | CP.PCM.PN ---
Subjective - Date & Time of Evaluation Date of Evaluation: 05/19/17 Time of Evaluation: 05:00 - Subjective Subjective: SURGERY PROGRESS NOTE FOR DR. NEGRON 51M seen and examined at bedside. No acute events overnight. Patient states pain is controlled. Denies N/V/F/C. Denies flatus and BM. Objective - Vital Signs/Intake and Output Vital Signs (last 24 hours): Temp Pulse Resp BP Pulse Ox 98.3 F 89 19 156/91 H 95 05/19/17 01:03 05/19/17 01:03 05/19/17 01:03 05/19/17 01:03 05/19/17 01:03 Intake and Output: 05/18/17 05/19/17 18:59 06:59 Intake Total 1950 Output Total 1502 Balance 448 - Medications Medications: Current Medications Acetaminophen (Tylenol 325mg Tab) 650 mg PO Q4 PRN PRN Reason: Pain, moderate (4-7) Benzocaine/Menthol (Cepacol Sore Throat) 1 terence PO Q1H PRN PRN Reason: Sore Throat Enoxaparin Sodium (Lovenox) 40 mg SC DAILY [facility] PRN Reason: Protocol Last Admin: 05/18/17 10:32 Dose: 40 mg Metronidazole (Flagyl 500mg/100ml Ns) 100 mls @ 100 mls/hr IVPB Q8 [facility] PRN Reason: Protocol Last Admin: 05/19/17 00:22 Dose: 100 mls/hr Piperacillin Sod/Tazobactam (Sod 3.375 gm/ Sodium Chloride) 100 mls @ 100 mls/ hr IVPB Q6 [facility] PRN Reason: Protocol Last Admin: 05/19/17 04:47 Dose: 100 mls/hr Meropenem 1 gm/ Sodium (Chloride) 100 mls @ 100 mls/hr IVPB Q8 [facility] PRN Reason: Protocol Last Admin: 05/19/17 00:23 Dose: 100 mls/hr Ketorolac Tromethamine (Toradol) 30 mg IVP Q6 PRN PRN Reason: Pain, severe (8-10) Nicotine (Nicoderm Cq) 1 patch TD DAILY [facility] Last Admin: 05/18/17 10:33 Dose: 1 patch Ondansetron HCl (Zofran Inj) 4 mg IVP Q4 PRN PRN Reason: Nausea/Vomiting Last Admin: 05/16/17 02:55 Dose: 4 mg Potassium Chloride (K-Dur 20 Meq Er Tab) 40 meq PO DAILY [facility] Last Admin: 05/18/17 10:56 Dose: 40 meq - Labs Labs: 05/18/17 06:20 05/18/17 06:20 PT 15.4 Seconds (9.8-13.1) H 05/15/17 08:35 INR 1.4 (0.9-1.2) H 05/15/17 08:35 APTT 28.7 Seconds (25.6-37.1) 05/15/17 08:35 - Constitutional Appears: Well, Non-toxic, No Acute Distress - Respiratory Exam Respiratory Exam: Clear to Ausculation Bilateral, NORMAL BREATHING PATTERN - Cardiovascular Exam Cardiovascular Exam: REGULAR RHYTHM, +S1, +S2 - GI/Abdominal Exam GI & Abdominal Exam: Soft, Tenderness (mildly diffusely tender). absent: Distended, Firm, Guarding, Rigid, Rebound Additional comments: incision CDI, YADIEL draining minimal serosanguinous output - Neurological Exam Neurological Exam: Alert, Awake - Skin Skin Exam: Dry, Intact, Normal Color, Warm Assessment and Plan - Assessment and Plan (Free Text) Assessment: 51M s/p sigmoidectomy with anastomosis POD#3 Plan: Pain control -DC'd opiod, now toradol. Await bowel function Poss DC abx today Monitor labs Poss removed YDAIEL drain today Advance diet as tolerated Discussed with Dr Henry Johnson, PGY2
[2017-05-19 07:20] LABS: HEMOGLOBIN 9.5 g/dL (12.0-18.0); MEAN CELL VOLUME 89.1 fl (80.0-94.0); MEAN CORPUSCULAR HEMOGLOBIN 30.9 pg (27.0-31.0); MEAN CORPUSCULAR HGB CONC 34.6 g/dL (33.0-37.0); RBC 3.06 Mil/uL (4.40-5.90); RED CELL DISTRIBUTION WIDTH 13.1 % (11.5-14.5)
[2017-05-19] MEDS: Potassium Chloride 20 mEq ER Tab PO SCH (09:43)
[2017-05-19] MEDS: Enoxaparin 40 mg Syringe SC SCH (09:43)
[2017-05-19 10:21] LABS: BLOOD UREA NITROGEN 6 mg/dl (9-20); CALCIUM 9.6 mg/dL (8.4-10.2); GFR AFRICAN-AMERICAN > 60; GFR NON-AFRICAN AMERICAN > 60
--- NOTE | 2017-05-19 19:32 | CP.PCM.PCO ---
Physician Communication Note - Physician Communication Note Physician Communication Note: do not order SD suppositories/meds on a pt w/ rectal anastamosis
--- NOTE | 2017-05-19 23:09 | CP.PCM.PN ---
Subjective - Date & Time of Evaluation Date of Evaluation: 05/19/17 Time of Evaluation: 08:05 - Subjective Subjective: Patient seen and examined at bedside with attending. 51M POD#3 s/p colectomy sitting in chair and denies SOB, chest pain, nausea, vomiting. He is "burping" a lot, still tolerating PO, had a small non-bloody BM this morning but denies passing flatus at the time of exam. His pain is controlled with current regimen. Objective - Vital Signs/Intake and Output Vital Signs (last 24 hours): Temp Pulse Resp BP Pulse Ox 37.3 C 97 H 18 154/91 H 98 05/19/17 16:06 05/19/17 16:06 05/19/17 16:06 05/19/17 16:06 05/19/17 16:06 Intake and Output: 05/19/17 05/20/17 18:59 06:59 Intake Total 2090 Output Total 3105 Balance -1015 - Medications Medications: Current Medications Acetaminophen (Tylenol 325mg Tab) 650 mg PO Q4 PRN PRN Reason: Pain, moderate (4-7) Benzocaine/Menthol (Cepacol Sore Throat) 1 terence PO Q1H PRN PRN Reason: Sore Throat Docusate Sodium (Colace Liquid) 100 mg PO DAILY [facility] Enoxaparin Sodium (Lovenox) 40 mg SC DAILY [facility] PRN Reason: Protocol Last Admin: 05/19/17 09:43 Dose: 40 mg Ketorolac Tromethamine (Toradol) 30 mg IVP Q6 PRN PRN Reason: Pain, severe (8-10) Last Admin: 05/19/17 18:04 Dose: 30 mg Nicotine (Nicoderm Cq) 1 patch TD DAILY [facility] Last Admin: 05/19/17 09:44 Dose: 1 patch Ondansetron HCl (Zofran Inj) 4 mg IVP Q4 PRN PRN Reason: Nausea/Vomiting Last Admin: 05/16/17 02:55 Dose: 4 mg Potassium Chloride (K-Dur 20 Meq Er Tab) 40 meq PO DAILY [facility] Last Admin: 05/19/17 09:43 Dose: 40 meq - Labs Labs: 05/19/17 05:30 05/19/17 09:03 PT 15.4 Seconds (9.8-13.1) H 05/15/17 08:35 INR 1.4 (0.9-1.2) H 05/15/17 08:35 APTT 28.7 Seconds (25.6-37.1) 05/15/17 08:35 - Constitutional Appears: Well, Non-toxic - Eye Exam Eye Exam: EOMI, PERRL - ENT Exam ENT Exam: Mucous Membranes Moist - Respiratory Exam Respiratory Exam: Clear to Ausculation Bilateral, NORMAL BREATHING PATTERN - Cardiovascular Exam Cardiovascular Exam: REGULAR RHYTHM, +S1, +S2 - GI/Abdominal Exam GI & Abdominal Exam: Soft, Tenderness (appropriately ttp), Normal Bowel Sounds ( somewhat normalized when compared to POD1 as expected. abdomen is not distended or tympanic, drsgs c/d/i) - Extremities Exam Extremities Exam: Normal Capillary Refill, Normal Inspection - Neurological Exam Neurological Exam: Alert, Awake - Psychiatric Exam Psychiatric exam: Normal Affect, Normal Mood - Skin Skin Exam: Dry, Normal Color Assessment and Plan - Assessment and Plan (Free Text) Assessment: 51M POD#3 s/p colectomy progressing well. - Plan: - Antibiotics/drsgs/drain/pain mgmnt/ bowel regimen as per surgical team - Smoke: Nicoderm - DVT Prophyalxis: Lovenox - OOB ad trent, Incentive spirometry
[2017-05-20] MEDS ORDERED: DiphenhydrAMINE 50 mg/ml Inj IVP STA (01:41)
[2017-05-20] MEDS: Potassium Chloride 20 mEq ER Tab PO SCH (09:17)
[2017-05-20] MEDS: Enoxaparin 40 mg Syringe SC SCH (09:17)
--- NOTE | 2017-05-20 09:19 | CP.PCM.PN ---
Subjective - Date & Time of Evaluation Date of Evaluation: 05/20/17 Time of Evaluation: 07:10 - Subjective Subjective: Patient seen and examined at bedside with attending. Interval Events: overnight nurse called surgery for pt c/o insomnia and after administration of Benadryl pt became a little anxious and tremulous and still unable to sleep. Medicine was then called and a one time dose of Ativan was ordered with good results. 51M POD#4 s/p colectomy sitting in chair and denies SOB, chest pain, nausea, vomiting. He is tolerating PO, passing flatus and non-bloody/pain free BMs. His pain is controlled with current regimen. Objective - Vital Signs/Intake and Output Vital Signs (last 24 hours): Temp Pulse Resp BP Pulse Ox 37.1 C 100 H 20 143/92 H 96 05/20/17 08:22 05/20/17 08:22 05/20/17 08:22 05/20/17 08:22 05/20/17 08:22 Intake and Output: 05/20/17 05/20/17 06:59 18:59 Intake Total 240 Output Total 955 Balance -715 - Medications Medications: Current Medications Acetaminophen (Tylenol 325mg Tab) 650 mg PO Q4 PRN PRN Reason: Pain, moderate (4-7) Benzocaine/Menthol (Cepacol Sore Throat) 1 terence PO Q1H PRN PRN Reason: Sore Throat Docusate Sodium (Colace Liquid) 100 mg PO DAILY [facility] Last Admin: 05/20/17 09:16 Dose: 100 mg Enoxaparin Sodium (Lovenox) 40 mg SC DAILY [facility] PRN Reason: Protocol Last Admin: 05/20/17 09:17 Dose: 40 mg Ketorolac Tromethamine (Toradol) 30 mg IVP Q6 PRN PRN Reason: Pain, severe (8-10) Last Admin: 05/20/17 00:29 Dose: 30 mg Nicotine (Nicoderm Cq) 1 patch TD DAILY [facility] Last Admin: 05/20/17 09:17 Dose: 1 patch Potassium Chloride (K-Dur 20 Meq Er Tab) 40 meq PO DAILY [facility] Last Admin: 05/20/17 09:17 Dose: 40 meq - Labs Labs: 05/19/17 05:30 05/19/17 09:03 PT 15.4 Seconds (9.8-13.1) H 05/15/17 08:35 INR 1.4 (0.9-1.2) H 05/15/17 08:35 APTT 28.7 Seconds (25.6-37.1) 05/15/17 08:35 - Constitutional Appears: Well, Non-toxic - Head Exam Head Exam: ATRAUMATIC - Eye Exam Eye Exam: Normal appearance - ENT Exam ENT Exam: Mucous Membranes Moist - Respiratory Exam Respiratory Exam: Clear to Ausculation Bilateral, NORMAL BREATHING PATTERN - Cardiovascular Exam Cardiovascular Exam: REGULAR RHYTHM, +S1, +S2 - GI/Abdominal Exam GI & Abdominal Exam: Soft, Tenderness (appropriately ttp), Normal Bowel Sounds - Extremities Exam Extremities Exam: Normal Capillary Refill, Normal Inspection - Neurological Exam Neurological Exam: Alert, Awake, Oriented x3 - Psychiatric Exam Psychiatric exam: Normal Affect, Normal Mood - Skin Skin Exam: Normal Color, Warm Assessment and Plan - Assessment and Plan (Free Text) Assessment: 51M POD#4 s/p eating, voiding, passing flatus/BM, ambulating, and pain is controlled. Pt stable for discharge awaiting surgical recommendations for outpatient follow up. Plan: - Antibiotics/drsgs/drain/pain mgmnt/ bowel regimen as per surgical team - Smoke: Nicoderm - DVT Prophyalxis: Lovenox - OOB ad trent, Incentive spirometry Less likely withdrawal reaction overnight than adverse, less common but likely atypical reaction to Benadryl.
--- NOTE | 2017-05-20 17:54 | CP.PCM.PN ---
Subjective - Date & Time of Evaluation Date of Evaluation: 05/20/17 Time of Evaluation: 08:00 - Subjective Subjective: Surgery: Dr. Figueroa Pt seen and examined. No acute events overnight. Pt states he feels well and is tolerating his diet. Admits to having soft BMs. Ambulating w/o difficulty. Denies N/V, F/C. Objective - Vital Signs/Intake and Output Vital Signs (last 24 hours): Temp Pulse Resp BP Pulse Ox 98.8 F 108 H 18 123/78 96 05/20/17 15:55 05/20/17 15:55 05/20/17 15:55 05/20/17 15:55 05/20/17 15:55 Intake and Output: 05/20/17 05/20/17 06:59 18:59 Intake Total 240 Output Total 955 Balance -715 - Medications Medications: Current Medications Acetaminophen (Tylenol 325mg Tab) 650 mg PO Q4 PRN PRN Reason: Pain, moderate (4-7) Benzocaine/Menthol (Cepacol Sore Throat) 1 terence PO Q1H PRN PRN Reason: Sore Throat Docusate Sodium (Colace Liquid) 100 mg PO DAILY [facility] Last Admin: 05/20/17 09:16 Dose: 100 mg Enoxaparin Sodium (Lovenox) 40 mg SC DAILY [facility] PRN Reason: Protocol Last Admin: 05/20/17 09:17 Dose: 40 mg Ketorolac Tromethamine (Toradol) 30 mg IVP Q6 PRN PRN Reason: Pain, severe (8-10) Last Admin: 05/20/17 12:09 Dose: 30 mg Nicotine (Nicoderm Cq) 1 patch TD DAILY [facility] Last Admin: 05/20/17 09:17 Dose: 1 patch Potassium Chloride (K-Dur 20 Meq Er Tab) 40 meq PO DAILY [facility] Last Admin: 05/20/17 09:17 Dose: 40 meq - Labs Labs: 05/19/17 05:30 05/19/17 09:03 PT 15.4 Seconds (9.8-13.1) H 05/15/17 08:35 INR 1.4 (0.9-1.2) H 05/15/17 08:35 APTT 28.7 Seconds (25.6-37.1) 05/15/17 08:35 - Constitutional Appears: Well, No Acute Distress - Head Exam Head Exam: ATRAUMATIC, NORMOCEPHALIC - Eye Exam Eye Exam: Normal appearance - ENT Exam ENT Exam: Mucous Membranes Moist - Respiratory Exam Respiratory Exam: NORMAL BREATHING PATTERN - Cardiovascular Exam Cardiovascular Exam: Tachycardia - GI/Abdominal Exam GI & Abdominal Exam: Soft (midline incision C/D/I, naina drain with serosang output). absent: Distended, Guarding, Tenderness - Neurological Exam Neurological Exam: Alert, Awake, Oriented x3 - Skin Skin Exam: Dry, Warm Assessment and Plan - Assessment and Plan (Free Text) Assessment: 51M s/p sigmoidectomy with primary anastomosis for recurrent diverticulitis; POD#4 Plan: - will DC naina in AM - cont ambulation & IS - plan for DC home in AM - d/w Dr. Figueroa who agrees with above Ralph, PGY-3
[2017-05-21 07:00] LABS: BLOOD UREA NITROGEN 14 mg/dl (9-20); CALCIUM 9.7 mg/dL (8.4-10.2); GFR AFRICAN-AMERICAN > 60; GFR NON-AFRICAN AMERICAN > 60
[2017-05-21 07:10] LABS: HEMOGLOBIN 11.7 g/dL (12.0-18.0); MEAN CELL VOLUME 91.4 fl (80.0-94.0); MEAN CORPUSCULAR HEMOGLOBIN 30.7 pg (27.0-31.0); MEAN CORPUSCULAR HGB CONC 33.6 g/dL (33.0-37.0); RBC 3.81 Mil/uL (4.40-5.90); RED CELL DISTRIBUTION WIDTH 13.5 % (11.5-14.5)
[2017-05-21 07:59] VITALS: BP 139/79; PULSE 94; RESP 20; TEMP 98.6; O2SAT 95
--- NOTE | 2017-05-21 08:11 | CP.PCM.DIS ---
Provider - Provider Date of Admission: 05/09/17 15:27 Attending physician: Jeannie Mckay MD Consults: Surgery: Dr. Figueroa Infectious Disease: Dr. Carey Time Spent in preparation of Discharge (in minutes): 45 Diagnosis - Discharge Diagnosis (1) Acute diverticulitis Status: Acute Comment: Patient stable after partial sigmoidectomy on 05/16/17. To be DC home with Percocet 5/325 for pain. No at home antibiotics required Hospital Course - Lab Results Lab Results: Micro Results 05/09/17 15:45 Blood-Venous Blood Culture - Final NO GROWTH AFTER 5 DAYS 05/09/17 15:45 Blood-Venous Gram Stain - Final TEST NOT PERFORMED 05/09/17 15:15 Blood-Venous Blood Culture - Final NO GROWTH AFTER 5 DAYS 05/09/17 15:15 Blood-Venous Gram Stain - Final TEST NOT PERFORMED 05/09/17 09:20 Urine Urine Culture - Final No Growth (<1,000 CFU/ML) Most Recent Lab Values WBC 15.0 K/uL (4.8-10.8) H 05/21/17 06:35 RBC 3.81 Mil/uL (4.40-5.90) L 05/21/17 06:35 Hgb 11.7 g/dL (12.0-18.0) L D 05/21/17 06:35 Hct 34.8 % (35.0-51.0) L 05/21/17 06:35 MCV 91.4 fl (80.0-94.0) D 05/21/17 06:35 MCH 30.7 pg (27.0-31.0) 05/21/17 06:35 MCHC 33.6 g/dL (33.0-37.0) 05/21/17 06:35 RDW 13.5 % (11.5-14.5) 05/21/17 06:35 Plt Count 546 K/uL (130-400) H D 05/21/17 06:35 MPV 6.7 fl (7.2-11.7) L 05/17/17 07:15 Neut % (Auto) 77.6 % (50.0-75.0) H 05/17/17 07:15 Lymph % (Auto) 8.7 % (20.0-40.0) L 05/17/17 07:15 Green % (Auto) 13.4 % (0.0-10.0) H 05/17/17 07:15 Eos % (Auto) 0.1 % (0.0-4.0) 05/17/17 07:15 Baso % (Auto) 0.2 % (0.0-2.0) 05/17/17 07:15 Neut # (Auto) 14.4 K/uL (1.8-7.0) H 05/17/17 07:15 Lymph # (Auto) 1.6 K/uL (1.0-4.3) 05/17/17 07:15 Green # (Auto) 2.5 K/uL (0.0-0.8) H 05/17/17 07:15 Eos # (Auto) 0.0 K/uL (0.0-0.7) 05/17/17 07:15 Baso # (Auto) 0.0 K/uL (0.0-0.2) 05/17/17 07:15 Neutrophils % (Manual) 82 % (42-75) H 05/17/17 07:15 Lymphocytes % (Manual) 4 % (20-50) L 05/17/17 07:15 Reactive Lymphs % 1 % (0-0) H 05/17/17 07:15 Monocytes % (Manual) 13 % (0-10) H 05/17/17 07:15 Basophils % (Manual) 1 % (0-2) 05/13/17 05:20 Platelet Estimate Normal (NORMAL) 05/17/17 07:15 Large Platelets Present 05/13/17 05:20 RBC Morphology Normal (NORMAL) 05/09/17 12:00 Hypochromasia (manual) Slight 05/17/17 07:15 Anisocytosis (manual) Slight 05/13/17 05:20 Microcytosis (manual) Slight 05/13/17 05:20 Tear Drop Cells Slight 05/13/17 05:20 PT 15.4 Seconds (9.8-13.1) H 05/15/17 08:35 INR 1.4 (0.9-1.2) H 05/15/17 08:35 APTT 28.7 Seconds (25.6-37.1) 05/15/17 08:35 Sodium 144 mmol/l (132-148) 05/21/17 06:35 Potassium 4.6 MMOL/L (3.6-5.0) 05/21/17 06:35 Chloride 99 mmol/L (98-107) 05/21/17 06:35 Carbon Dioxide 31 mmol/L (22-30) H 05/21/17 06:35 Anion Gap 19 (10-20) 05/21/17 06:35 BUN 14 mg/dl (9-20) 05/21/17 06:35 Creatinine 0.6 mg/dl (0.8-1.5) L 05/21/17 06:35 Est GFR ( Amer) > 60 05/21/17 06:35 Est GFR (Non-Af Amer) > 60 05/21/17 06:35 POC Glucose (mg/dL) 110 mg/dL (65-110) 05/13/17 23:14 Random Glucose 123 mg/dL (75-110) H 05/21/17 06:35 Hemoglobin A1c 5.5 % (4.2-6.5) 05/10/17 06:00 Calcium 9.7 mg/dL (8.4-10.2) 05/21/17 06:35 Total Bilirubin 0.2 mg/dl (0.2-1.3) 05/17/17 07:15 AST 21 U/L (17-59) 05/17/17 07:15 ALT 31 U/L (21-72) 05/17/17 07:15 Alkaline Phosphatase 34 U/L (38-126) L D 05/17/17 07:15 Troponin I < 0.0120 ng/mL (0.00-0.120) 05/10/17 06:00 NT-Pro-B Natriuret Pep 48.9 pg/ml (0-900) 05/10/17 06:00 Total Protein 5.6 G/DL (6.3-8.2) L 05/17/17 07:15 Albumin 2.8 g/dL (3.5-5.0) L 05/17/17 07:15 Globulin 2.9 gm/dL (2.2-3.9) 05/17/17 07:15 Albumin/Globulin Ratio 1.0 (1.0-2.1) 05/17/17 07:15 Triglycerides 161 mg/DL (0-149) H 05/10/17 06:00 Cholesterol 153 mg/dL (0-199) 05/10/17 06:00 LDL Cholesterol Direct 65 mg/dL (0-129) 05/10/17 06:00 HDL Cholesterol 48 MG/DL (30-70) 05/10/17 06:00 Procalcitonin < 0.05 NG/ML (0.19-0.49) L 05/10/17 06:00 Urine Color Yellow (YELLOW) 05/09/17 13:00 Urine Clarity Clear (Clear) 05/09/17 13:00 Urine pH 6.0 (5.0-8.0) 05/09/17 13:00 Ur Specific Halsey 1.010 (1.003-1.030) 05/09/17 13:00 Urine Protein Negative mg/dL (NEGATIVE) 05/09/17 13:00 Urine Glucose (UA) Neg mg/dL (Normal) 05/09/17 13:00 Urine Ketones Negative mg/dL (NEGATIVE) 05/09/17 13:00 Urine Blood Negative (NEGATIVE) 05/09/17 13:00 Urine Nitrate Negative (NEGATIVE) 05/09/17 13:00 Urine Bilirubin Negative (NEGATIVE) 05/09/17 13:00 Urine Urobilinogen 0.2-1.0 mg/dL (0.2-1.0) 05/09/17 13:00 Ur Leukocyte Esterase Neg Rodrigo/uL (Negative) 05/09/17 13:00 Urine RBC (Auto) 3 /hpf (0-3) 05/09/17 13:00 Urine Microscopic WBC 1 /hpf (0-5) 05/09/17 13:00 Ur Squamous Epith Cells < 1 /hpf (0-5) 05/09/17 13:00 Urine Bacteria Rare (<OCC) 05/09/17 13:00 Urine Opiates Screen Positive (NEGATIVE) H 05/09/17 09:20 Urine Methadone Screen Negative (NEGATIVE) 05/09/17 09:20 Ur Barbiturates Screen Negative (NEGATIVE) 05/09/17 09:20 Ur Phencyclidine Scrn Negative (NEGATIVE) 05/09/17 09:20 Ur Amphetamines Screen Negative (NEGATIVE) 05/09/17 09:20 U Benzodiazepines Scrn Negative (NEGATIVE) 05/09/17 09:20 U Oth Cocaine Metabols Negative (NEGATIVE) 05/09/17 09:20 U Cannabinoids Screen Positive (NEGATIVE) H 05/09/17 09:20 Hepatitis C Antibody Negative (NEGATIVE) 05/16/17 08:14 HIV 1&2 Antibody Screen Negative (NEGATIVE) 05/16/17 08:14 Blood Type O POSITIVE 05/15/17 08:35 Blood Type Confirm O POSITIVE 05/15/17 08:41 Antibody Screen Negative 05/15/17 08:35 Crossmatch See Detail 05/15/17 08:35 BBK History Checked No verified bt 05/15/17 08:35 - Hospital Course Hospital Course: Patient was admitted to hospital on 05/09/17 for worsening abdominal pain. After imaging patient was diagnosed with diverticulitis with microperforations and started on IV Flagyl, Zosyn and Meropenem. Patial sigmoidectomy with primary anastomosis via EEA was performed on 05/16/17. Patient tolerated procedure well and is urinating and defecating regularly and without difficulty or pain at this time. Patient for f/u at [facility] where he will need a referral to the General Surgery Clinic with Dr. Figueroa - Date & Time of H&P Date of H&P: 05/21/17 Time of H&P: 08:18 Discharge Exam - Head Exam Head Exam: ATRAUMATIC - Eye Exam Eye Exam: EOMI, Normal appearance, PERRL Pupil Exam: PERRL - ENT Exam ENT Exam: Mucous Membranes Moist, Normal Exam - Neck Exam Neck exam: Full Rom, Normal Inspection - Respiratory Exam Respiratory Exam: NORMAL BREATHING PATTERN - Cardiovascular Exam Cardiovascular Exam: REGULAR RHYTHM - GI/Abdominal Exam GI & Abdominal Exam: absent: Distended, Firm, Guarding, Tenderness Additional comments: Dressings to abdominal surgical site appear clean, dry and intact - Rectal Exam Rectal Exam: Deferred - Extremities Exam Extremities exam: full ROM, normal inspection - Neurological Exam Neurological exam: Alert, Oriented x3 - Psychiatric Exam Psychiatric exam: Normal Affect, Normal Mood - Skin Skin Exam: Intact, Warm Discharge Plan - Discharge Medications Prescriptions: oxyCODONE/Acetaminophen [Percocet 5/325 mg Tab] 1 ea PO Q6 PRN #10 tab PRN Reason: Pain, Severe (8-10) - Follow Up Plan Condition: STABLE Disposition: HOME/ ROUTINE Instructions: Diverticulitis (DC), Colectomy Additional Instructions: May return to regular diet but avoid large heavy meals. Please make appointment for two weeks with Dr Figueroa in office for suture removal and general follow up. May shower but do not bath. Please take prescriptions as instructed. Referrals: [facility] [Outside] Shraddha Figueroa MD [Staff Provider] -
[2017-05-21] MEDS: Potassium Chloride 20 mEq ER Tab PO SCH (09:25)
[2017-05-21] MEDS: Enoxaparin 40 mg Syringe SC SCH (09:25)
== END 2017-05-21 14:55 | disposition home or self-care (01) | DRG 585 ==
LOC: H.ER 10:21 → H.ERHOLD 15:27 → H.MEDSURG1 22:10
PROVIDERS: ADMIT Family Medicine Geriatric Medicine; ATTEND Family Medicine Geriatric Medicine
PROC: 0DTN0ZZ Resection of Sigmoid Colon, Open Approach (ICD-10-PCS; principal; 2017-05-16 12:00)
PROC: 3E0T3BZ Introduction of Anesthetic Agent into Peripheral Nerves and Plexi, Percutaneous Approach (ICD-10-PCS; 2017-05-16 12:00)
DX: K57.20 Diverticulitis of large intestine with perforation and abscess without bleeding (principal); A41.9 Sepsis, unspecified organism; N18.9 Chronic kidney disease, unspecified; E87.6 Hypokalemia; K76.0 Fatty (change of) liver, not elsewhere classified; F10.20 Alcohol dependence, uncomplicated; N40.0 Benign prostatic hyperplasia without lower urinary tract symptoms; R00.0 Tachycardia, unspecified; R30.0 Dysuria; F12.90 Cannabis use, unspecified, uncomplicated; F17.200 Nicotine dependence, unspecified, uncomplicated; G47.00 Insomnia, unspecified; I25.10 Atherosclerotic heart disease of native coronary artery without angina pectoris; Z91.018 Allergy to other foods

== ENCOUNTER 2017-05-29 15:41 | Emergency (ER) | payer OTHER ==
[2017-05-29 15:41] VITALS: BMI 29.0
[2017-05-29 15:49] VITALS: BP 126/77; PULSE 118; RESP 18; TEMP 98.2; O2SAT 99
--- NOTE | 2017-05-29 16:22 | ED PDOC ---
HPI: General Adult <Edson Brandt III - Last Filed: 05/29/17 16:48> <Flaquita Medina - Last Filed: 05/29/17 17:59> Chief Complaint (Nursing): Abnormal Labs Additional Complaint(s): 51yo M with PMHx diverticulitis c/o abnormal labs. Elevated WBC, recieved phone call regarding labs and instructed to come to ED after pt spouse said he was c/ o abd pain and not feeling well per EMR documentation. In the ED, pt states he is feeling well. Denies fever, chills, n/v, abd pain. Taking percocet (not prescribed) BID for pain control. Seen by Surgery Dr. Figueroa yesterday with latricia removed. SHx significant for partial simoid hemicolectomy 05/16/17 with pathology showing diverticulitis and no carcinoma. Labs show leukocytosis downtrending. PCP: [facility] (Flaquita Medina) Supervising Attending Note - Attestation: I have personally seen and examined this patient.: Yes I have fully participated in the care of the patient.: Yes I have reviewed all pertinent clinical information, including history, physical exam and plan: Yes <Edson Brandt III - Last Filed: 05/29/17 16:48> <Flaquita Medina - Last Filed: 05/29/17 17:59> - Notes: Notes:: WBC improving from prior Abd no focal tenderness Incision appears clean/intact Pt saw Dr Figueroa yesterday Re-Checking labs and giving IVF bolus endorse Dr Guerrier [id number] (Edson Brandt III) Past Medical History <Edson Brandt III - Last Filed: 05/29/17 16:48> Reviewed: Historical Data, Nursing Documentation, Vital Signs - Medical History PMH: Diverticulitis Denies: HTN (PT DENIES), Hypercholesterolemia (PT DENIES), Chronic Kidney Disease - Family History Family History: States: Unknown Family Hx - Social History Current smoker - smoking cessation education provided: Yes - Immunization History Hx Tetanus Toxoid Vaccination: No Hx Influenza Vaccination: Yes Hx Pneumococcal Vaccination: No <Flaquita Medina - Last Filed: 05/29/17 17:59> Vital Signs: Last Vital Signs Temp 98.2 F 05/29/17 15:46 Pulse 118 H 05/29/17 15:46 Resp 18 05/29/17 15:46 BP 126/77 05/29/17 15:46 Pulse Ox 99 05/29/17 17:36 - Home Medications Home Medications: Ambulatory Orders Medication Instructions Recorded oxyCODONE/Acetaminophen [Percocet 1 ea PO Q6 PRN #10 tab 05/21/17 5/325 mg Tab] Docusate Sodium [Colace] 100 mg PO BID PRN #60 capsule 05/29/17 traMADol [Ultram] 50 mg PO TID PRN #15 tab 05/29/17 - Allergies Allergies/Adverse Reactions: Allergies Allergy/AdvReac Type Severity Reaction Status Date / Time bacitracin Allergy SWELLING Verified 05/29/17 15:46 [From Rash Relief Antibacterial] dimethicone Allergy SWELLING Verified 05/29/17 15:46 [From Rash Relief Antibacterial] hazelnut Allergy SWELLING Verified 05/09/17 10:46 zinc oxide Allergy SWELLING Verified 05/29/17 15:46 [From Rash Relief Antibacterial] Review of Systems ROS Statement: Except As Marked, All Systems Reviewed And Found Negative <Flaquita Medina - Last Filed: 05/29/17 17:59> Physical Exam - Reviewed Nursing Documentation Reviewed: Yes Vital Signs Reviewed: Yes - Physical Exam Appears: Positive for: Well, Non-toxic Head Exam: Positive for: ATRAUMATIC, NORMAL INSPECTION Skin: Positive for: Warm, Dry Eye Exam: Positive for: Normal appearance Neck: Positive for: Normal, Painless ROM Cardiovascular/Chest: Positive for: Regular Rate, Rhythm, Chest Non Tender Respiratory: Positive for: Normal Breath Sounds. Negative for: Decreased Breath Sounds Gastrointestinal/Abdominal: Positive for: Bowel Sounds, Soft, Tenderness (LLQ), Other (vertical incision well healed). Negative for: Mass, Distended, Guarding Back: Positive for: Normal Inspection Extremity: Positive for: Normal ROM. Negative for: Tenderness Lymphatic: Negative for: Adenopathy Neurologic/Psych: Positive for: Alert, Oriented <AdamTing - Last Filed: 05/29/17 17:59> - Laboratory Results Result Diagrams: 05/29/17 16:32 05/29/17 16:32 - ECG O2 Sat by Pulse Oximetry: 99 <AdamTing - Last Filed: 05/29/17 17:59> Medical Decision Making <Edson Brandt III - Last Filed: 05/29/17 16:48> <Flaquita Medina - Last Filed: 05/29/17 17:59> Medical Decision Makin ECW reviewed and telephone encounter reviewed DDx leukocytosis, s/p hemicolectomy, diverticulosis CBC, CMP IVF NS bolus 500CC reassessement 1708 CBC no leukocytosis d/c home with tramadol, FU NH 2 days (Flaquita) Disposition <Edson Brandt III - Last Filed: 05/29/17 16:48> - Disposition Disposition Time: 17:35 <Flaquita Medina - Last Filed: 05/29/17 17:59> - Clinical Impression Clinical Impression: Leukocytosis - Disposition Referrals: [facility] [Outside] Condition: STABLE Prescriptions: Docusate Sodium [Colace] 100 mg PO BID PRN #60 capsule PRN Reason: Constipation traMADol [Ultram] 50 mg PO TID PRN #15 tab PRN Reason: severe pain Forms: [facility] (Malay)
[2017-05-29] MEDS ORDERED: Sodium Chloride 0.9% 500 ML IV ONE (16:26)
[2017-05-29 16:45] LABS: BASO # 0.2 K/uL (0.0-0.2); BASO % 1.4 % (0.0-2.0); EOS # 0.2 K/uL (0.0-0.7); EOS % 2.2 % (0.0-4.0); HEMOGLOBIN 11.1 g/dL (12.0-18.0); LYMPH # 2.1 K/uL (1.0-4.3); MEAN CELL VOLUME 91.2 fl (80.0-94.0); MEAN CORPUSCULAR HEMOGLOBIN 31.2 pg (27.0-31.0); MEAN CORPUSCULAR HGB CONC 34.2 g/dL (33.0-37.0); MEAN PLATELET VOLUME 6.5 fl (7.2-11.7); MONO # 1.3 K/uL (0.0-0.8); MONO % 12.1 % (0.0-10.0); NEUT # 7.1 K/uL (1.8-7.0); NEUT % 65.3 % (50.0-75.0); RBC 3.54 Mil/uL (4.40-5.90); RED CELL DISTRIBUTION WIDTH 14.4 % (11.5-14.5); WHITE BLOOD COUNT 10.8 K/uL (4.8-10.8)
[2017-05-29 17:31] LABS: ALB/GLOB RATIO 1.1 (1.0-2.1); ALBUMIN 4.1 g/dL (3.5-5.0); ALT/SGPT 34 U/L (21-72); AST/SGOT 34 U/L (17-59); BLOOD UREA NITROGEN 17 mg/dl (9-20); CALCIUM 9.6 mg/dL (8.4-10.2); GFR AFRICAN-AMERICAN > 60; GFR NON-AFRICAN AMERICAN > 60
== END 2017-05-29 18:16 | disposition home or self-care (01) ==
LOC: H.ER 15:41
DX: D72.89 Other specified disorders of white blood cells (principal); N18.9 Chronic kidney disease, unspecified; Z90.49 Acquired absence of other specified parts of digestive tract; F17.200 Nicotine dependence, unspecified, uncomplicated
CPT/HCPCS: 80053; 85025; 99282; J7040